=== PATIENT | female | born 1970 | race Asian ===

== ENCOUNTER 2025-09-17 00:30 | Inpatient (IN) | payer MEDICAID ==
[~2025-09-17] VITALS: Ht 157.5 cm; Wt 70.7 kg
[2025-09-17] VITALS (21 sets, daily range): BP systolic 142–182; BP diastolic 91–117; PULSE 93–133; RESP 17–26; TEMP 98–98.4; O2SAT 90–97
--- NOTE | 2025-09-17 00:38 | Physician Documentation ---
History of Present Illness ~ Stated Complaint: ASTHMATIC Time Seen by MD: 00:36 Primary Medical Doctor: Pedro CONNELLY Patient presents to the emergency room for evaluation of shortness of breath. History of asthma. Symptoms has been getting worse over the past two days and significantly worse today. He is in her albuterol without effect. She does not smoke. Medication Reconciliation Allergies: Coded Allergies: Oxycodone (Verified Allergy, Mild, CRAZY DREAMS, 11/05/13) Scheduled Allopurinol (Allopurinol), 1 TAB PO DAILY, (Reported) Atorvastatin Calcium (Atorvastatin Calcium), 1 TAB PO DAILY, (Reported) Carvedilol (Carvedilol), 1 TAB PO BID, (Reported) Diltiazem HCl (Diltiazem 24Hr Cd), 1 CAP PO HS, (Reported) Estradiol (Estradiol), 1 TAB PO DAILY, (Reported) Famotidine (Famotidine), 1 TAB PO BID, (Reported) Miscellaneous Medications Albuterol Sulfate* (Proventil Neb*), (Reported) Past Medical History Past Medical History: Hypertension, Asthma, Sleep Apnea, *RENAL/*, Diabetes Past Surgical History: other Lives with: Family Lives In: Home Review of Systems ROS All review of systems negative except as per HPI Physical Exam Physical Exam General: Patient is awake, alert, oriented x4 in mild distress Head: Normocephalic and atraumatic. Eyes: Conjunctival normal. EOMI. PERRL. ENT: Mucous membranes moist. Neck: Supple, trachea is midline. Chest: Diffuse bilateral wheezing noted. There is no accessory muscle use or retractions. Tachypneic Cardiac: RRR without murmurs, gallops, or rubs. Abd: Soft, nondistended, nontender, with normoactive bowel sounds. No guarding, rebound, or rigidity. Extremities: Normal strength. Normal range of motion. No deformities or edema. Progress Results/Orders Results/Orders Orders - HANSEL MILNER MD Svn Treatment (09/17/25 00:36) Cont Nebulizer Treatment (09/17/25 00:48) Chest,Single View (09/17/25 02:40) Page Hospitalist (09/17/25 02:38) Fill Out Med Reconciliation (09/17/25 02:38) Completed Orders - HANSEL MILNER MD Methylprednisolone Sod Succ (Solumedrol (09/17/25 00:40) Ipratropium/Albuterol Nebule (Ipratrop/A (09/17/25 00:40) Magnesium Sulf-Water 2g/50ml (Magnesium (09/17/25 00:45) Albuterol 2.5mg/3ml Nebule (Proventil 2. (09/17/25 00:50) Electrocardiogram (09/17/25 01:02) Ondansetron Inj. (Zofran 4mg/2ml Vial) (09/17/25 01:15) Hydralazine Inj. (Apresoline Inj.) (09/17/25 02:10) Amlodipine Tablet (Norvasc Tablet) (09/17/25 02:10) Cbc/Diff (09/17/25 02:38) Chest,Single View (09/17/25 02:40) Hs Troponin I W Calculations (09/17/25 02:38) PBNP (09/17/25 02:38) BMP (09/17/25 02:38) Hgb A1c (09/17/25 01:08) Osmolality (09/17/25 01:08) Vital Signs 09/17/25 09/17/25 09/17/25 09/17/25 00:36 00:48 00:58 01:19 Temp 98.0 Pulse 99 94 93 Resp 16 22 18 B/P (MAP) 238/134 Pulse Ox 89 90 95 O2 Delivery Room Air* Room Air* O2 Flow Rate 0 0 0 FiO2 21 21 09/17/25 09/17/25 09/17/25 09/17/25 01:20 01:22 01:22 02:14 Temp 98.0 Pulse 94 91 87 Resp 18 20 B/P (MAP) 208/121 (150) Pulse Ox 91 91 91 O2 Delivery Nasal Cannula* O2 Flow Rate 2 2 FiO2 N/A N/A 09/17/25 09/17/25 09/17/25 02:14 02:17 02:27 Temp 98.0 Pulse 89 93 104 Resp 18 18 B/P (MAP) 201/123 (149) Pulse Ox 95 94 O2 Flow Rate 2 FiO2 N/A Laboratory Tests Test 09/17/25 01:08 White Blood Count 10.4 Red Blood Count 3.82 L Hemoglobin 11.1 L Hematocrit 33.5 L Mean Corpuscular Volume 87.8 Mean Corpuscular Hemoglobin 29.2 Mean Corpuscular Hemoglobin Concent 33.2 Red Cell Distribution Width 14.7 H Platelet Count 297 Mean Platelet Volume 9.2 Neutrophils (%) (Auto) 77.1 H Lymphocytes (%) (Auto) 13.3 L Monocytes (%) (Auto) 5.5 Eosinophils (%) (Auto) 3.5 Basophils (%) (Auto) 0.6 Neutrophils # (Auto) 8.0 H Lymphocytes # (Auto) 1.4 Monocytes # (Auto) 0.6 Eosinophils # (Auto) 0.4 Basophils # (Auto) 0.1 CBC Comment Sodium Level 137 Potassium Level 4.7 Chloride Level 105 Carbon Dioxide Level 21.2 L Anion Gap 11 Blood Urea Nitrogen 44 H Creatinine 4.43 H Estimated GFR/1.73 m2 10 BUN/Creatinine Ratio 9.9 L Glucose Level 176 H Hemoglobin A1c 8.0 H Osmolality 316 H Calcium Level 8.7 Troponin I High Sensitivity 8 Pro-B-Type Natriuretic Peptide 2995 H Albumin 3.5 Procalcitonin 0.17 Chemistry Comments EKG/XRAY/CT/US/VASC/MRI EKG : Additional Comment EKG interpreted by myself shows time of 0041, rate 97, sinus rhythm, normal axis, no ST changes Medical Decision Making Additional information obtaine: N/A Findings Patient presents to the emergency room with significant wheezing and shortness of breath. Differentials include but are not limited to asthma exacerbation, COPD exacerbation, CHF, viral syndrome therefore emergent breathing treatments ordered. Patient is greatly improved however she continues to have diffuse wheezing and decreased exercise tolerance and that has not feel safe going home. IV Solu-Medrol administered. Heart Score: 1 Differential Dx:Considerations: Include: anxiety, asthma, bronchitis, cardiogenic shock, CHF, COPD, dysrhythmia, hypertension, accelerated, hypertension, essential, hypertension, malignant, hyperventilation, hyponatremia, myocardial infarction, panic attack, pneumonia, pneumonitis, pneumothorax, PSVT, pulmonary embolism, respiratory distress, respiratory failu re, sinusitis, upper resp. infection, other Departure Admitted to Inpatient Unit: yes, to hospitalist Impression: Primary Impression: Asthma with acute exacerbation Additional Impression: Hypoxia Condition: Guarded Referrals: NO PRIMARY CARE PROVIDER (PCP) Signature Scribe Signature: No scribe Attestation: The note accurately reflects work and decisions made by me.Hansel Milner MD 09/17/25 02:40 HANSEL MILNER MD Sep 17, 2025 00:38
[2025-09-17] MEDS: ipratropium/albuterol 3ml nebule NEB ONE (00:47)
--- NOTE | 2025-09-17 01:04 | ELECTROCARDIOGRAPH REPORT ---
[facility] Test Date: 2025-09-17 Test Time: 00:41:25 Pat Name: NANCY RAND Department: EMERGENCY ROOM Room: [facility]TH[facility] Gender: F Park Interpreter: AUGUSTIN : 1970 Requested By: LIVIA CARDENAS Order Number: [id number] Reading MD: Dr. MIGUEL A Plaza Measurements Intervals [place] Rate: 97 P: 78 [place]: 175 QRS: 87 QRSD: 89 T: 72 QT: 397 QTc: 505 Interpretive Statements Sinus rhythm Borderline prolonged QT interval Electronically Signed On 09-18-2025 16:55:[address] MIGUEL A Plaza Please click the below link to view image of tracing.
[2025-09-17] MEDS: magnesium sulf-water 2g/50mL 50 ML IV ONE (01:06)
[2025-09-17] MEDS: ondansetron/PF 4mg/2ml inj IV ONE (01:17)
[2025-09-17] MEDS: albuterol 2.5 MG/3 ML nebule CONTNEB PRN (01:19)
[2025-09-17] MEDS: hydrALAZINE 20mg/ml inj. IV ONE ×3 (02:14→06:44)
[2025-09-17] MEDS ORDERED: ALB0.5UD INH (02:45)
[2025-09-17] MEDS ORDERED: ESTR0.5T28 PO (02:45)
[2025-09-17] MEDS ORDERED: DILT-36 PO (02:45)
[2025-09-17] MEDS ORDERED: ATOR20TA66 PO (02:45)
[2025-09-17] MEDS ORDERED: CARV25TA56 PO (02:45)
[2025-09-17] MEDS ORDERED: ALLO300T8 PO (02:45)
--- NOTE | 2025-09-17 02:59 | RADIOLOGY REPORT ---
CHEST RADIOGRAPH Indication: SOB Technique: Single frontal view of the chest was obtained COMPARISON: None FINDINGS: Lines and Tubes: None Lungs: Clear Pleura: No effusion. No pneumothorax. Cardiomediastinal contours: Unremarkable Bones: Unremarkable. ACDF hardware. IMPRESSION: 1. No acute cardiopulmonary disease.
[2025-09-17 03:04] LABS: CREATININE 4.43 MG/DL (0.40-0.90); PRO BRAIN NATRIURETIC PEPTIDE 2995 PG/ML (0-125); TOTAL CARBON DIOXIDE 21.2 MMOL/L (24-32); eCRCL 11 ML/MIN; eGFR 10 ML/MIN
[2025-09-17 03:05] LABS: MEAN PLATELET VOLUME 9.2 FL (7.4-10.4); RED CELL DISTRIBUTION WIDTH 14.7 % (11.5-14.5)
[2025-09-17] MEDS ORDERED: magnesium sulf-water 4G/100mL 100 ML IV PRN (03:15)
[2025-09-17] MEDS ORDERED: magnesium sulf-water 2g/50mL 50 ML IV PRN (03:15)
[2025-09-17] MEDS ORDERED: potassium Cl 40MEQ/1/2NS 520ml 520 ML IV PRN (03:15)
[2025-09-17] MEDS ORDERED: magnesium Cl slow-release 64mg tablet PO PRN (03:15)
[2025-09-17] MEDS ORDERED: magnesium hydroxide 30ml (MOM) UD suspension PO PRN (03:15)
[2025-09-17] MEDS ORDERED: potassium Cl 20 mEq SR tablet PO PRN ×2 (03:15)
[2025-09-17 03:31] LABS: OSMOLALITY 316 MOSM/K (280-300)
[2025-09-17] MEDS: normal saline 1000ml 1,000 ML IV SCH (03:39)
[2025-09-17] MEDS: PERFLUTREN PROTEIN-A MICROSPHR (Optison) 0.22 MG/ML 3ML VIAL IV ONE (03:39)
[2025-09-17 04:09] LABS: INFLUENZA TYPE A ANTIGEN RAPID NEGATIVE (Negative); INFLUENZA TYPE B ANTIGEN RAPID NEGATIVE (Negative)
[2025-09-17 04:23] LABS: CREATININE,URINE RANDOM 32.0 MG/DL
[2025-09-17 04:44] LABS: OSMOLALITY UA 338.0 MOSM/K (50-1400)
[2025-09-17 05:01] LABS: LEUKOCYTE ESTERASE ,URINE NEGATIVE (Neg); NITRITES, URINE NEGATIVE (Neg); OCCULT BLOOD,URINE TRACE-INTACT (Neg)
[2025-09-17 05:08] LABS: UA COLLECTION TYPE NON-SPECIFIED
[2025-09-17 05:11] LABS: SQUAMOUS EPITHELIAL CELL,UR FEW /LPF (FEW)
--- NOTE | 2025-09-17 05:16 | HISTORY AND PHYSICAL-Residence ---
History & Physical Providers to CC Resident Creating Document: BELÉN PLUMMER, RES ~ History of Present Illness Primary Medical Doctor: Pedro Reason for Admit\Complaint: Asthma exacerbation History of Present Illness A 54-year-old woman with a remote diagnosis of asthma (well controlled, uses ROME only once/twice per year) presented to the ED as she woke this morning with acute onset chest tightness and progressive dyspnea. Symptoms began on awakening and worsened with exertion; she used her albuterol repeatedly throughout the day without any relief. Patient's symptoms were associated with productive cough with white sputum; however she denied fever, chills or rhinorrhea. In the ED she required L of O2 to maintain SpO2 > 90%. She received one dose of IV methylprednisolone 125 mg and DuoNeb with partial clinical response. Chest X-ray reported as normal. Rapid influenza and COVID negative. 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 Lives at home with the son and niece Ambulates independently Allergies: Coded Allergies: Oxycodone (Verified Allergy, Mild, CRAZY DREAMS, 11/05/13) Home Medications Home Medications Active Reported Atorvastatin Calcium 20 Mg Tablet 1 Tab PO DAILY Carvedilol 25 Mg Tablet 1 Tab PO BID Diltiazem 24Hr Cd (Diltiazem HCl) 180 Mg Cap.er.24h 1 Cap PO HS Estradiol 0.5 Mg Tablet 1 Tab PO DAILY Proventil Neb* (Albuterol) 2.5 Mg/0.5 Ml Vial.neb Allopurinol 300 Mg Tablet 1 Tab PO DAILY Past Medical History Past Medical History Hyperlipidemia Hypertension Gout Stage IV CKD Asthma Past Surgical History Surgical History Comment Resection of brain tumor-meningioma C4-C7 ACDF cervical surgery Left shoulder surgery 20 years ago Endometrial ablation Mandibular surgery and tonsillectomy for obstructive sleep apnea Past Social History Social History Comment Denied smoking and alcohol use Admits to smoking marijuana daily Lives with: Family Lives In: Home ROS ROS Reviewed in full. All negative except for pertinent positive HPI. Exam Vitals: Vital Signs Date Time Temp Pulse Resp B/P (MAP) Pulse Ox O2 Delivery O2 Flow Rate FiO2 09/17/25 05:01 108 09/17/25 04:51 98.0 23 187/97 (127) 90 0 N/A 09/17/25 01:22 Nasal Cannula* General: Awake , alert, and oriented x4, in acute distress HEENT: Atraumatic, normocephalic, EOMI, anicteric sclera ; pink conjunctiva Neck: Trachea midline. Supple, full range of motion, no JVD Cardiac: Regular rhythm, regular rate with no murmurs all over the precordium. Respiratory: Diminished bilateral breath sounds with severe wheezing Gastrointestinal: Abdomen symmetric, non-distended, soft, non-tender, normal bowel sounds x4 quadrant, normoactive, no hepatosplenomegaly Musculoskeletal: No pedal edema, no cyanosis Neurological: Mental status exam: alert and consciousness, orientation, memory, speech - Cranial nerve test: Cranial nerves 2-12 intact - Motor system: Nutrition, Tone 3+, Power 5/5, no involuntary movements - Sensory system: Intact - Reflex testing: Biceps, triceps and knee reflexes 2+ - Cerebellar: Normal Skin: Warm and dry Diagnostic Data Last Recorded Lab Results: 09/17/2510709/17/25107 Advance Care Planning Advanced Care plannin - 30 Minutes Additional Plan 1. Acute Hypoxemic Respiratory Failure 2. Acute on chronic Asthma Exacerbation New oxygen requirement (2 L NC) to maintain SpO2 >90% Likely secondary to asthma exacerbation; no infiltrates on CXR Afebrile, normal WBC, low procal (0.17) infection less likely BNP elevated (2995) but may be chronically elevated due to CKD; no radiographic pulmonary edema Acute onset wheezing, chest tightness, dyspnea unresponsive to frequent albuterol at home This is first severe episode in years. Trigger unclear (no viral symptoms, COVID/flu negative) Responded partially to Duonebs and IV methylprednisolone 125 mg in the ED Plan Continue oxygen to maintain SpO2 9094%; wean as tolerated Consider ABG only if worsening work of breathing Repeat CXR if respiratory status worsens Duoneb (albuterol / ipratropium) q4h scheduled & q2h PRN Systemic steroids: Methylprednisolone 62.5 mg IV q.8h Please DC patient on Symbicort scheduled b.i.d. Pulmonary function testing outpatient 3. Stage 4 CKD (Cr 4.43, eGFR 10) Probably secondary to hypertension; hypertensive nephropathy Known advanced CKD followed by outpatient nephrology, Dr Hebert Davidson BNP may be falsely elevated due to renal disease Electrolytes stable; no evidence of volume overload clinically Currently not on hemodialysis Plan Renal-dose all medications Avoid nephrotoxins Monitor BMP daily Urine lytes ordered Renal ultrasound ordered Continue outpatient nephrology follow-up 4. Hypertensive urgency On home diltiazem 180 mg and carvedilol 25 mg BID BP high on admission, 180/100 Mild tachypnea but hemodynamically stable. Plan Continue home antihypertensives Patient received hydralazine 20 mg IV once in the ED follow up with 10 mg Patient is already on a different classes of antihypertensives, if blood pressures are high during the hospital stay, we will benefit from addition of amlodipine 10 mg (safety renally) 5. Elevated BNP (2995) Questionable heart failure Likely chronic elevation due to CKD (GFR 10) No pulmonary congestion on CXR; no orthopnea, PND or peripheral edema Plan Echocardiogram ordered, follow up Monitor volume status daily, currently in euvolemia 6. Type 2 diabetes mellitus (A1c 8%, glucose 176) Poor glycemic control Steroids will worsen hyperglycemia Currently not on any antidiabetic medications Plan Ordered Lantus 12 units with low-dose sliding scale insulin Monitor glucose AC & HS Adjust regimen once off steroids 7. Cough With White Sputum Likely airway inflammation from asthma. No fever, negative viral panel, low procal, normal WBC - low suspicion for bacterial infection Plan No antibiotics at this time Consider antibiotics if sputum becomes purulent, febrile or CXR changes 8. Gout on Allopurinol dvanced CKD with eGFR around 10 Currently on allopurinol 300 mg daily, which is excessive for this level of renal function Plan Renally adjusted allopurinol dosage Reduced to 100 mg once daily If GFR <10 ,consider 50 mg daily or 100 mg every other day Ordered uric acid levels Continue outpatient nephrology follow-up 9. Hyperlipidemia Follow up with the lipid panel, continue home medication atorvastatin 20 mg daily Code Status: I spent a total of 17 minutes on reviewing various resuscitative measures with the patient at the time of admission. The patient has decided on a full code status. DVT Prophylaxis: Heparin SQ Nutrition: Renal diet PT: Ordered Prognosis: Guarded Belén Plummer MD Internal Medicine Resident, PGY-2 Attending Physician Attestation Evaluation via HIPAA compliant A/V device. I discussed the case with the resident and I agree with the resident's documentation. 54-year-old woman with a history of mild intermittent intrinsic asthma, essential hypertension, CKD 4 and gout now admitted with an asthma exacerbation. The treatment plan includes: Bronchodilator therapy with albuterol/ipratropium and IV methylprednisolone for treatment of the patient's obstructive lung disease. There is no evidence of a lower tract infection. Antimicrobial therapy will be withheld at this time. Time spent 50 minutes. Date of Service: Sep 17, 2025 Billing Provider: DIONISIO VALDES MD, GAURAV, RES Sep 17, 2025 05:16 DIONISIO VALDES MD Sep 17, 2025 07:04
[2025-09-17] MEDS ORDERED: dextrose 50%-water 50ml dispensing syringe IV PRN ×2 (05:25)
[2025-09-17] MEDS ORDERED: glucagon, human recombinant 1mg kit SUBCUT PRN (05:25)
[2025-09-17] MEDS ORDERED: DEXTROSE 15 GM of carb/4 tabs (each vial/BOTTLE has 4 tablets) PO PRN ×2 (05:25)
[2025-09-17] MEDS ORDERED: methylPREDNISolone sod succ/PF 40mg inj. IV SCH (05:25)
[2025-09-17] MEDS ORDERED: ipratropium/albuterol 3ml nebule NEB PRN (05:25)
[2025-09-17 06:22] LABS: UA EOSINOPHILS RARE EOS /HPF
[2025-09-17] MEDS: ipratropium/albuterol 3ml nebule NEB SCH (06:48)
[2025-09-17] MEDS: ondansetron/PF 4mg/2ml inj IV PRN (07:14)
[2025-09-17] MEDS: docusate sod 100mg capsule PO SCH (08:00)
[2025-09-17] MEDS: INSULIN LISPRO 100 UNIT/ML INSULN.PEN MULTI-DOSE SQ SCH ×2 (08:22→20:38)
[2025-09-17] MEDS: K and/or MAG REPLACEMENT MC SCH (09:35)
[2025-09-17] MEDS: heparin, porcine 5000 units/ml vial SQ SCH (09:56)
--- NOTE | 2025-09-17 10:57 | RADIOLOGY REPORT ---
INDICATION: CKD vs REAGAN TECHNIQUE: Multiple real-time sonographic images of the kidneys and bladder were obtained. COMPARISON: None FINDINGS: The right kidney measures 12 cm in length, which is normal in size. There is increased echogenicity of the right kidney. No hydronephrosis. The left kidney measures 10 cm in length, which is normal in size. There is increased echogenicity of the left kidney. No hydronephrosis. No large intraluminal masses are seen in the bladder. Prior to voiding the bladder volume measures volume 464 cc. IMPRESSION: Echogenic bilateral kidneys suggestive of chronic medical renal disease. No hydronephrosis.
[2025-09-17] MEDS: Nepro carb steady vanilla 8oz. PO SCH (13:00)
[2025-09-17] MEDS: CefTRIAXone/D5W-Rocephin 1gm 50 ML IV SCH (16:07)
[2025-09-17] MEDS: mag hydrox/Alum hydrox/simeth 30ml oral suspension PO PRN (16:17)
[2025-09-17] MEDS ORDERED: FAMO20TA8 PO (16:19)
[2025-09-17] MEDS: azithromycin/NS 500mg/250ml 250 ML IV SCH (17:09)
[2025-09-17 17:32] LABS: URINE AMPHETAMINE SCREEN NEGATIVE (Neg); URINE BARBITUATE SCREEN NEGATIVE (Neg); URINE BENZODIAZEPINES SCREEN NEGATIVE (Neg); URINE CANNABINOID SCREEN POSITIVE (Neg); URINE COCAINE SCREEN NEGATIVE (Neg); URINE METHADONE SCREEN NEGATIVE (Neg); URINE OPIATE SCREEN NEGATIVE (Neg); URINE PHENCYCLIDINE SCREEN NEGATIVE (Neg)
--- NOTE | 2025-09-17 17:33 | CARDIOLOGY REPORT ---
APPROVED REPORT EXAM: Comprehensive 2D, Doppler, and color-flow Echocardiogram. Patient Location: [facility] Heart Rate: 105 bpm Rhythm: SINUS TACHYCARDIA Indications SHORT OF BREATH ASTHMA CHRONIC RENAL FAILURE HYPERTENSION SLEEP APNEA DIABETES Tape Duplicator: NONE Previous echo: NONE 2D Dimensions RVDd 2.5 cm LA Diam 3.7 cm LVOT Diameter 2.06 (1.8-2.4cm) CO 5.2 L/min M-Mode Dimensions Left Atrium(MM) 3.30 (2.5-4.0cm) IVSd 1.13 (0.7-1.1cm) LVDd 4.05 (4.0-5.6cm) Aortic Root 3.21 (2.2-3.7cm) PWd 1.17 (0.7-1.1cm) Aortic Cusp Exc 1.75 (1.5-2.0cm) IVSs 1.44 cm LVDs 2.47 (2.0-3.8cm) FS (%) 39 % PWs 1.75 cm ESV(Teich) 21.7 ml LVEF(%) 70 (>50%) Aortic Valve AoV Peak Aidan. 137.2 cm/s AoV VTI 23.1 cm AO Peak GR. 7.5 mmHg AO Mean GR. 4 mmHg LVOT VTI 21.75 cm LVOT Peak Aidan. 112.8 cm/s ANTONIA(VTI)/BSA 2.77 cm2/m2 ANTONIA (VTI) 2.77 cm2 AV DI 0.94 % Mitral Valve MV Peak Gr. 10 mmHg MV PHT 28 ms MVA (PHT) 7.86 cm2 MV VMax 159.2 cm/s Tricuspid Valve TR P. Velocity 111 cm/s RAP ESTIMATE 10 mmHg TR Peak Gr. 5 mmHg RVSP 15 mmHg Pulmonary Vein S1 Velocity 82.2 cm/s D2 Velocity 87.6 cm/s PVa Velocity 42.6 cm/s PVa Duration 124 msec LEFT VENTRICLE Normal LV size with concentric hypertrophy. Overall systolic function is normal. overall LVEF is 65%. RIGHT VENTRICLE RV is normal size and function. Thickened RV free wall. ATRIA The left atrium size is normal. AORTIC VALVE Trileaflet AV appears minimal sclerotic without stenosis or insufficiency. MITRAL VALVE Mild MV annular calcification without stenosis. Trace regurgitation. TRICUSPID VALVE TV appears structurally normal with trivial regurgitation. PULMONIC VALVE Normal PV without stenosis, physiologic insufficiency. GREAT VESSELS Aortic root is normal in size. Ascending aorta is normal in size. The IVC is normal in size and collapses >50% with inspiration. PERICARDIUM Normal pericardium. No effusion. Other Information Study Quality: Adequate Conclusion overall LVEF is 65%. Normal LV size with concentric hypertrophy. Overall systolic function is normal. RV is normal size and function. Thickened RV free wall. Trileaflet AV appears minimal sclerotic without stenosis or insufficiency. Mild MV annular calcification without stenosis. Trace regurgitation. TV appears structurally normal with trivial regurgitation. Ascending aorta is normal in size. Normal pericardium. No effusion.
--- NOTE | 2025-09-17 19:13 | PROGRESS NOTE- Residence ---
Progress Note - Resident Providers to CC Resident Creating Document: LUIZ MERCEDES RES ~ Antibiotic Timeout Antibiotic Ordered?: Yes Subjective Patient was seen and examined bedside. She states that her shortness of breath has mildly improved. She is saturating well on 6 L O2. She endorses having headache due to high blood pressure. She denies any other medical complaints. Objective Vital Signs Date Time Temp Pulse Resp B/P (MAP) Pulse Ox O2 Delivery O2 Flow Rate FiO2 09/17/25 18:44 98.1 128 22 182/117 (138) 94 4.0 09/17/25 16:01 Nasal Cannula 09/17/25 16:00 36 Result Diagram: 09/17/25 0108 09/17/25 0707 Awake , alert, and oriented x4, in mild distress HEENT: Atraumatic, normocephalic, EOMI, anicteric sclera ; pink conjunctiva Neck: Trachea midline. Supple, full range of motion, no JVD Cardiac: Regular rhythm, regular rate with no murmurs all over the precordium. Respiratory: Diminished breath sounds bilaterally with severe wheezing, no tachypnea, rub or rales, Chest wall is symmetric and without deformity. Gastrointestinal: Abdomen symmetric, non-distended, soft, non-tender, normal bowel sounds x4 quadrant, normoactive, no hepatosplenomegaly Musculoskeletal: No pedal edema, no cyanosis Neurological: Speech is clear, alert, and oriented x 4. No motor or sensory deficit, deep tendon reflexes normal, cerebellar intact. Cranial nerves II-XII intact. Skin: Warm and dry Coagulation Studies Laboratory Tests Test 09/17/25 14:55 D-Dimer 0.74 MG/L FEU (0-0.50) H D-Dimer Comment Assessment Assessment 54 year old female with history of hypertension, hyperlipidemia, gout, stage 4 CKD, asthma admitted for management of COPD exacerbation. Plan Plan Acute Hypoxemic Respiratory Failure 2/2 COPD exacerbation Dyspnea and wheezing unresponsive to Albuterol inhaler at home She does not use oxygen at home She is saturating well on 6 L O2 NC CXR shows no acute cardiopulmonary abnormality Inflammatory markers are normal SIRS criteria not met Trigger unclear (no viral symptoms, COVID/flu negative) Plan: Started IV ceftriaxone 1 gm and IV azithromycin 500 mg - day 1 Continue IV methylprednisolone 62.5 mg Q8h Duoneb (albuterol / ipratropium) q4h scheduled & q2h PRN Incentive spirometry Plan to discharge patient on Symbicort scheduled b.i.d., Pulmonary function testing outpatient Possible PE Wells score is 1.5 D-dimer is mildly elevated- 0.74 Echo shows LVEF of 65%, RVSP 15 mm Hg, concentric hypertrophy of LV, thickened RV free wall, trace mitral regurgitation and trivial tricuspid regurgitation. Patient is tachycardic CTA cannot be done as patient has CKD and creatinine is elevated Follow up V/Q scan Stage 4 CKD (Cr 4.43, eGFR 10) Probably secondary to hypertension; hypertensive nephropathy Advanced CKD followed by outpatient nephrology, Dr Hebert Davidson Creatinine is elevated - 4.43, baseline unknown BUN is 44 Fena- 10% BNP may be falsely elevated due to renal disease Electrolytes stable; no evidence of volume overload clinically Currently not on hemodialysis Monitor BMP daily Renal ultrasound shows echogenic bilateral kidneys suggestive of chronic medical renal disease and no hydronephrosis Continue outpatient nephrology follow-up Hypertensive urgency Blood pressure is 179/107 She uses diltiazem 180 mg and carvedilol 25 mg BID at home Continued home antihypertensives Started amlodipine 5 mg IV hydralazine prn if systolic BP > 180 mm Hg Type 2 diabetes mellitus HbA1C is 8% Poor glycemic control Steroids will worsen hyperglycemia Currently not on any antidiabetic medications Continue Lantus 12 units with low-dose sliding scale insulin Monitor glucose AC & HS Consider scheduled lispro if glucose not controlled by tomorrow Adjust regimen once off steroids Gout Patient uses Allopurinol at home She uses allopurinol 300 mg daily at home which is not renally dosed Continue allopurinol 100 mg dosage, which is renally dosed If GFR <10 ,consider 50 mg daily or 100 mg every other day Uric acid is elevated-7.4 Continue outpatient nephrology follow-up Hyperlipidemia Follow up lipid panel Continue home medication atorvastatin 20 mg daily DVT Prophylaxis: Heparin SQ Nutrition: Renal diet PT: Ordered Prognosis: Guarded Disposition: Continue IV antibiotics, monitor creatinine and blood pressure, Follow up V/Q scan, PT eval and DC plan Resident attestation: The above note has been reviewed and supervised by a senior resident PGY2/PGY3 Patient was seen, examined and discussed with the attending physician, Dr. Torrie Mercedes MD Internal Medicine Resident, PGY 1 Date of Service: Sep 17, 2025 Billing Provider: BAMBI SALAZAR MD, PREETHI, RES Sep 17, 2025 19:13
[2025-09-17] MEDS: diltiazem CD 180mg cap (once-daily) PO SCH (20:00)
[2025-09-17] MEDS: insulin glargine (Lantus) pen - multi-dose SQ SCH (20:39)
[2025-09-17] MEDS ORDERED: hydrALAZINE 20mg/ml inj. IV PRN (21:35)
[2025-09-17] MEDS: LEVALBUTEROL HCL 1.25 MG/3 ML VIAL.NEB INH SCH (23:29)
[2025-09-18] VITALS (17 sets, daily range): BP systolic 138–161; BP diastolic 80–92; PULSE 84–105; RESP 14–20; TEMP 97.8–99.3; O2SAT 92–96
[2025-09-18] MEDS: methylPREDNISolone sod succ/PF 40mg inj. IV SCH (01:01)
[2025-09-18 06:38] LABS: MEAN PLATELET VOLUME 8.9 FL (7.4-10.4); RED CELL DISTRIBUTION WIDTH 14.6 % (11.5-14.5)
[2025-09-18 06:44] LABS: CHOL/HDL RATIO 3.8 (0.00-4.99); CREATININE 4.47 MG/DL (0.40-0.90); LDL CHOLESTEROL 147 MG/DL (50-100); TOTAL CARBON DIOXIDE 18.3 MMOL/L (24-32); eCRCL 11 ML/MIN; eGFR 10 ML/MIN
--- NOTE | 2025-09-18 09:33 | RADIOLOGY REPORT ---
CLINICAL INFORMATION: Shortness of breath. Elevated D-dimer. TECHNIQUE: 43.1 mCi of aerosolized Tc99m DTPA was used for the ventilation portion of the exam. Posterior ventilation imaging was obtained. 5.5 mCi of technetium 99m MAA was used for the perfusion portion of the exam. Imaging was obtained in multiple planes of projection. COMPARISON: Chest radiograph dated 09/17/2025. FINDINGS: Perfusion imaging shows no mismatched segmental or subsegmental segmental defects. Ventilation imaging shows no defects. There is normal washout. IMPRESSION: Normal exam. No evidence of pulmonary embolism.
[2025-09-18] MEDS: INSULIN LISPRO 100 UNIT/ML INSULN.PEN MULTI-DOSE SQ SCH ×2 (12:16→17:51)
--- NOTE | 2025-09-18 12:24 | PROGRESS NOTE- Residence ---
Progress Note - Resident Providers to CC Resident Creating Document: LUIZ MERCEDES RES ~ Antibiotic Timeout Antibiotic Ordered?: Yes Subjective Patient was seen and examined bedside. Her shortness of breath and wheezing has improved. She is saturating well on 4 L oxygen. She denies headache, chest pain, palpitations or any other acute complaints. Objective Vital Signs Date Time Temp Pulse Resp B/P (MAP) Pulse Ox O2 Delivery O2 Flow Rate FiO2 09/18/25 11:17 84 20 Nasal Cannula 4.0 09/18/25 11:09 96 36 09/18/25 10:00 97.8 138/85 (102) Result Diagram: 09/18/25 0553 09/18/25 0553 Awake , alert, and oriented x4, resting comfortably in bed, in no acute distress HEENT: Atraumatic, normocephalic, EOMI, anicteric sclera ; pink conjunctiva Neck: Trachea midline. Supple, full range of motion, no JVD Cardiac: Regular rhythm, regular rate with no murmurs all over the precordium. Respiratory: Diminished breath sounds bilaterally with wheezing, no tachypnea, rub or rales, Chest wall is symmetric and without deformity. Gastrointestinal: Abdomen symmetric, non-distended, soft, non-tender, normal bowel sounds x4 quadrant, normoactive, no hepatosplenomegaly Musculoskeletal: No pedal edema, no cyanosis Neurological: Speech is clear, alert, and oriented x 4. No motor or sensory deficit, deep tendon reflexes normal, cerebellar intact. Cranial nerves II-XII intact. Skin: Warm and dry Coagulation Studies Laboratory Tests Test 09/17/25 14:55 D-Dimer 0.74 MG/L FEU (0-0.50) H D-Dimer Comment Assessment Assessment 54 year old female with history of hypertension, hyperlipidemia, gout, stage 4 CKD, asthma admitted for management of COPD exacerbation. Plan Plan Acute Hypoxemic Respiratory Failure 2/2 COPD exacerbation Shortness of breath and wheezing have improved She does not use oxygen at home She is saturating well on 4 L O2 NC CXR (09/17/25) showed no acute cardiopulmonary abnormality WBC has elevated, most likely due to steroids SIRS criteria not met Trigger unclear (no viral symptoms, COVID/flu negative) Plan: Continue IV ceftriaxone 1 gm and IV azithromycin 500 mg - day 2 Continue IV methylprednisolone 62.5 mg Q8h Duoneb (albuterol / ipratropium) q4h scheduled & q2h PRN Incentive spirometry Plan to discharge patient on Symbicort scheduled b.i.d. Pulmonary function testing outpatient Suspicion of PE-ruled out Wells score is 1.5 D-dimer is mildly elevated- 0.74 Echo shows LVEF of 65%, RVSP 15 mm Hg, concentric hypertrophy of LV, thickened RV free wall, trace mitral regurgitation and trivial tricuspid regurgitation. CTA could not be done as patient has CKD and creatinine is elevated V/Q scan shows no evidence of pulmonary embolism Stage 4 CKD (Cr 4.43, eGFR 10) Probably secondary to hypertensionor diabetes; hypertensive nephropathy/diabetic nephropathy Advanced CKD followed by outpatient nephrology, Dr Hebert Davidson Creatinine has up trended from 4.43 to 4.47, baseline unknown BUN is 52, eGFR is 10 Fena- 10% NS at 100 mL/hour BNP may be falsely elevated due to renal disease Bicarbonate is 18.3, consider drip if bicarbonate < 15 No evidence of volume overload clinically Currently not on hemodialysis Monitor BMP and electrolytes Renal ultrasound (09/17/25) showed echogenic bilateral kidneys suggestive of chronic medical renal disease and no hydronephrosis Dr. Muñoz was consulted, awaiting recommendations Hypertensive urgency-resolved Blood pressure is 138/85 She uses diltiazem 180 mg and carvedilol 25 mg BID at home, as per patient she does not have a history of AFib and uses diltiazem and carvedilol for hypertension Continued home antihypertensives Continue amlodipine 5 mg IV hydralazine prn if systolic BP > 180 mm Hg Questionable history of AFib Steven Vasc score 3 Patient takes diltiazem 180 mg at home As per patient, she does not have a history of AFib and uses diltiazem for hypertension Tele (09/17/25) showed sinus tachycardia Her pulse rate has stabilized, currently in the 80s Continued home medication diltiazem 180 mg Patient is not on blood thinners Type 2 diabetes mellitus HbA1C is 8% Poor glycemic control Currently not on any antidiabetic medications Increased Lantus from 12 units to 15 units Started lispro 2 units ACHS along with high-dose hyperglycemia/hypoglycemia protocol Monitor glucose Gout Patient uses Allopurinol at home She uses allopurinol 300 mg daily at home which is not renally dosed Continue allopurinol 100 mg dosage, which is renally dosed If GFR <10 ,consider 50 mg daily or 100 mg every other day Uric acid is elevated-7.4 Outpatient follow up Hyperlipidemia LDL is 147 She uses atorvastatin 20 mg at home Increased atorvastatin to 40 mg Outpatient follow up DVT Prophylaxis: Heparin SQ Nutrition: Renal diet PT: Ordered Prognosis: Guarded Disposition: Continue IV antibiotics, steroids and DuoNebs, monitor creatinine and blood pressure, awaiting Dr. Muñoz recommendations, PT eval and DC plan Resident attestation: The above note has been reviewed and supervised by a senior resident PGY2/PGY3 Patient was seen, examined and discussed with the attending physician, Dr. Torrie Mercedes MD Internal Medicine Resident, PGY 1 Date of Service: Sep 18, 2025 Billing Provider: BAMBI SALAZAR MD, PREETHI, RES Sep 18, 2025 12:24
[2025-09-18] MEDS: INSULIN LISPRO 100 UNIT/ML INSULN.PEN MULTI-DOSE SQ ONE (18:00)
[2025-09-18] MEDS: insulin glargine (Lantus) pen - multi-dose SQ SCH (21:31)
--- NOTE | 2025-09-18 22:07 | CONSULTATION REPORT ---
Consult Providers to CC ~ History of Present Illness Reason for Admit\Complaint: Dyspnea History of Present Illness This patient with advanced CKD, hypertension, diabetes, and asthma presented with acute hypoxic respiratory failure, likely multifactorial (asthma exacerbation, possible CHF). She is at high risk for further renal injury and requires careful management of volume status, blood pressure, and medication dosing. Allergies: Coded Allergies: Oxycodone (Verified Allergy, Mild, CRAZY DREAMS, 11/05/13) Home Medications Home Medications Active Reported Famotidine 20 Mg Tablet 1 Tab PO BID Atorvastatin Calcium 20 Mg Tablet 1 Tab PO DAILY Carvedilol 25 Mg Tablet 1 Tab PO BID Diltiazem 24Hr Cd (Diltiazem HCl) 180 Mg Cap.er.24h 1 Cap PO HS Estradiol 0.5 Mg Tablet 1 Tab PO DAILY Proventil Neb* (Albuterol) 2.5 Mg/0.5 Ml Vial.neb 2 Puffs INH PRN PRN Allopurinol 300 Mg Tablet 1 Tab PO DAILY Past Medical History Past Medical History Reviewed Past Surgical History Surgical History Comment Reviewed Past Social History Social History Comment Reviewed ROS ROS All other systems negative by patient report Exam Vitals: Vital Signs Date Time Temp Pulse Resp B/P (MAP) Pulse Ox O2 Delivery O2 Flow Rate FiO2 09/18/25 21:28 103 09/18/25 20:00 Nasal Cannula 4.0 36 09/18/25 19:46 18 09/18/25 19:40 95 09/18/25 18:00 98.1 149/83 (105) Alert, appears comfortable RRR w/o murmur CTAB +BS, NT No edema Diagnostic Data Last Recorded Lab Results: 09/18/25 0553 09/18/25 0553 Diagnostic Data: I & O 09/18/25 07:00 Intake Total 1040 ml Balance 1040 ml Intake Oral 1040 ml Laboratory Tests Test 09/17/25 14:55 D-Dimer 0.74 MG/L FEU (0-0.50) H D-Dimer Comment Problems: (1) Acute kidney injury superimposed on CKD Assessment & Plan: Acute on Chronic Kidney Disease (Stage IV CKD) Monitor renal function daily (BUN/Cr, electrolytes, urine output). Baseline creatinine is elevated at 4.43, BUN 44, with known CKD IV; risk for further REAGAN given acute illness, hypoxia, and possible volume shifts. Review and adjust nephrotoxic medications. Avoid NSAIDs, minimize contrast exposure, and review allopurinol dosing (currently 100 mg in hospital, previously 300 mg at home). Optimize volume status. Assess for volume overload vs. depletion; physical exam and daily weights; consider diuretics if evidence of fluid overload, but monitor for hypovolemia. Monitor for metabolic derangements. CO2 is low (21.2), monitor for metabolic acidosis; correct as needed. Renal dosing of all medications. Ensure all antibiotics and other medications are dosed appropriately for eGFR. (2) Acute and chronic respiratory failure with hypoxia Assessment & Plan: Acute Hypoxic Respiratory Failure (Asthma Exacerbation vs. Cardiac Etiology) Continue inhaled bronchodilators and systemic steroids. Patient responded to IV methylprednisolone and DuoNeb; continue scheduled bronchodilators and taper steroids as clinically indicated. Monitor for infection. Productive cough with white sputum, but afebrile and negative for COVID/influenza; empiric azithromycin and ceftriaxone are reasonable pending further workup. Monitor oxygenation and wean as tolerated. Maintain SpO2 >90%; currently on room air with improvement. Evaluate for cardiac contribution (CHF). Elevated BNP (2995) and hypertension suggest possible heart failure exacerbation; monitor for signs of volume overload. (3) Hypertensive emergency Assessment & Plan: Hypertensive Emergency/Severe Hypertension Continue antihypertensive regimen with close monitoring. Admission BP 180/100, improved to 187/97; on amlodipine, carvedilol, diltiazem, hydralazine. Avoid rapid overcorrection. Target gradual BP reduction to avoid hypoperfusion, especially with CKD. Monitor for end-organ damage. Assess for neurologic changes, worsening renal function, or cardiac ischemia. (4) Heart failure Assessment & Plan: Heart Failure with Preserved Ejection Fraction (HFpEF) Suspected Monitor for volume overload. BNP markedly elevated; assess for JVD, edema, rales. Optimize fluid balance. Diurese if evidence of overload, but balance with CKD status. Continue guideline-directed medical therapy. Carvedilol, amlodipine, diltiazem; review for possible adjustments. (5) Diabetes mellitus Assessment & Plan: Type 2 Diabetes Mellitus Monitor blood glucose closely. Admission glucose 176; on insulin glargine and lispro in hospital. Adjust insulin as needed for stress hyperglycemia. No recent A1c; monitor for hypoglycemia, especially with reduced oral intake or renal dysfunction. (6) Gout Assessment & Plan: Gout Continue allopurinol at renally adjusted dose. Currently on 100 mg in hospital; monitor for acute gout flares, especially with diuretic use or acute illness. JOSE WALL III DO Sep 18, 2025 22:07
[2025-09-19] VITALS (21 sets, daily range): BP systolic 134–175; BP diastolic 73–101; PULSE 88–113; RESP 16–22; TEMP 97.5–98.6; O2SAT 93–98
[2025-09-19 06:19] LABS: CREATININE 4.51 MG/DL (0.40-0.90); TOTAL CARBON DIOXIDE 18.3 MMOL/L (24-32); eCRCL 11 ML/MIN; eGFR 10 ML/MIN
[2025-09-19 06:28] LABS: MEAN PLATELET VOLUME 8.6 FL (7.4-10.4); RED CELL DISTRIBUTION WIDTH 14.9 % (11.5-14.5)
[2025-09-19] MEDS: methylPREDNISolone sod succ/PF 40mg inj. IV SCH (08:16)
[2025-09-19] MEDS: INSULIN LISPRO 100 UNIT/ML INSULN.PEN MULTI-DOSE SQ SCH ×2 (09:00→18:00)
--- NOTE | 2025-09-19 09:24 | ELECTROCARDIOGRAPH REPORT ---
[facility] Test Date: 2025-09-19 Test Time: 09:21:44 Pat Name: NANCY RAND Department: [facility] Patient ID: [facility]-[id number] Room: [place] [id number] B Gender: F Building Carpenter: Marilynn Box : [id number] Requested By: WYATT PETERSON Order Number: [id number] Reading MD: Dr. MIGUEL A Plaza Measurements Intervals [place] Rate: 100 P: 73 RI: 150 QRS: 70 QRSD: 91 T: 41 QT: 363 QTc: 469 Interpretive Statements Sinus tachycardia Anteroseptal infarct, old Electronically Signed On 09-19-2025 16:50:[address] MIGUEL A Plaza Please click the below link to view image of tracing.
[2025-09-19] MEDS ORDERED: furosemide 10 MG/1 ML 10ml inj IV ONE (10:25)
[2025-09-19 11:35] LABS: MEAN PLATELET VOLUME 8.7 FL (7.4-10.4); RED CELL DISTRIBUTION WIDTH 14.7 % (11.5-14.5)
[2025-09-19] MEDS ORDERED: ipratropium/albuterol 3ml nebule NEB PRN (11:55)
--- NOTE | 2025-09-19 11:59 | RADIOLOGY REPORT ---
CHEST RADIOGRAPH Indication: sob Technique: Single frontal view of the chest was obtained COMPARISON: DI CHEST,SINGLE VIEW on DOS: 09/17/25 FINDINGS: Lines and Tubes: None Lungs: Clear Pleura: No effusion. No pneumothorax. Cardiomediastinal contours: Unremarkable Bones: Unremarkable IMPRESSION: No acute disease.
[2025-09-19] MEDS: ipratropium/albuterol 3ml nebule NEB SCH (15:00)
[2025-09-19] MEDS: LIDOcaine 1% (10mg/ml) 2ml vial SQ ONE (15:30)
--- NOTE | 2025-09-19 16:21 | RADIOLOGY REPORT ---
EXAM: DI CHEST,SINGLE VIEW HISTORY: suzie catheter placements COMPARISON: DI CHEST,SINGLE VIEW on DOS: 09/19/25, DI CHEST,SINGLE VIEW on DOS: 09/17/25 TECHNIQUE: Portable upright AP view of the chest was performed. FINDINGS: There is a right IJ central line with its tip in the right atrium. No pneumothorax, consolidative infiltrates, or pulmonary edema. The heart is not enlarged. There are Postoperative changes of ACDF. There are postoperative changes of left shoulder surgery with multiple bone anchors present. There is mo derate thoracic degenerative disc disease. IMPRESSION: 1. New right IJ central line with its tip in the right atrium, without evidence of pneumothorax. 2. Postoperative changes of ACDF and left shoulder surgery.
--- NOTE | 2025-09-19 17:34 | PROCEDURE NOTE- Residance ---
Procedure Note Providers to CC ~ Description Consent was obtained and a time-out was completed verifying correct patient, procedure, site, and positioning. The patient was placed in appropriate dependen t position for central line placement. The patients right neck was prepped and draped in sterile fashion. 1% Lidocaine was used to anesthetize the surrounding skin area. Ultrasound was used to identify the vein and observe the needle entering the vein. A double lumen catheter was introduced into the internal jugular vein using Seldinger technique. The catheter was threaded smoothly over the guide wire and guide wire was removed. Appropriate blood return was obtained and each lumen of the catheter was evacuated of air and flushed with sterile saline. The catheter was then sutured in place to the skin and a sterile dressing applied. The patient tolerated the procedure well and there were no complications. Blood loss was minimal. Date of Service: Sep 19, 2025 Billing Provider: VERO RICARDO MD,YAHAIRA ARGUETA, RES Sep 19, 2025 17:34
--- NOTE | 2025-09-19 18:26 | PROGRESS NOTE- Residence ---
Progress Note - Resident Providers to CC Resident Creating Document: WYATT ABRAMS CC: BAMBI SALAZAR MD ~ Antibiotic Timeout Antibiotic Ordered?: Yes Subjective Patient was seen and examined bedside. She reported significant the worsened shortness of breaths this morning, with associated chest pain which started after she got up to use the commode. She denies fevers, chills or any other subjective symptoms Objective Vital Signs Date Time Temp Pulse Resp B/P (MAP) Pulse Ox O2 Delivery O2 Flow Rate FiO2 09/19/25 17:45 98.5 99 22 171/75 (107) 95 Nasal Cannula 4.0 09/19/25 16:02 36 Result Diagram: 09/19/25 1110 09/19/25 0544 General: awake, alert oriented to place, time, and person HEENT: No pallor present, no icterus, moist mucous membranes Neck: No masses and tenderness Resp: Labored. Crackles and wheezes auscultated throughout Chest: Normal expansion Cardiovascular: Regular Rate and rhythm, normal S1 and S2 without murmur, rub or gallop Abdomen: Soft and nontender, no organomegaly, no guarding and rigidity, bowel sounds present Neuro: No focal weakness in the upper and lower limb muscles, power of the muscles 5/5 bilateral upper and lower extremities, normal reflexes bilaterally. Cranial nerves intact Extremities: No cyanosis,clubbing or edema Skin: Warm and Dry. No lesions Psych: Normal affect Coagulation Studies Laboratory Tests Test 09/17/25 14:55 D-Dimer 0.74 MG/L FEU (0-0.50) H D-Dimer Comment Assessment Assessment 54 year old female with history of hypertension, hyperlipidemia, gout, stage 4 CKD, asthma admitted for management of COPD exacerbation. Plan Plan Acute Hypoxemic Respiratory Failure 2/2 COPD exacerbation Acute pulmonary edema Reactive leukocytosis likely secondary to steroids Shortness of breath and wheezing worsened this morning She does not use oxygen at home She is saturating well on 4 L O2 NC CXR (09/17/25) showed no acute cardiopulmonary abnormality Repeat checks the esterase shows significant pulmonary edema WBC has elevated, most likely due to steroids SIRS criteria not met Trigger unclear (no viral symptoms, COVID/flu negative) Plan: Continue IV ceftriaxone 1 gm and IV azithromycin 500 mg - day 3 Decreased IV methylprednisolone to 62.5 mg b.i.d. Continue Duoneb (albuterol / ipratropium) q4h scheduled & q2h PRN Continue Incentive spirometry and flutter IV fluids of his stopped Single dose of IV Lasix 20 mg given Plan to discharge patient on Symbicort scheduled b.i.d. Pulmonary function testing outpatient Suspicion of PE-ruled out Wells score is 1.5 D-dimer is mildly elevated- 0.74 Echo shows LVEF of 65%, RVSP 15 mm Hg, concentric hypertrophy of LV, thickened RV free wall, trace mitral regurgitation and trivial tricuspid regurgitation. CTA could not be done as patient has CKD and creatinine is elevated V/Q scan shows no evidence of pulmonary embolism Stage 4 CKD (Cr 4.43, eGFR 10) Probably secondary to hypertensionor diabetes; hypertensive nephropathy/diabetic nephropathy Advanced CKD followed by outpatient nephrology, Dr Hebert Davidson Creatinine has continued to up trend with poor urine output BNP may be falsely elevated due to renal disease Bicarbonate is 18.3, consider drip if bicarbonate < 15 Fluids discontinued in view of fluid overload Renal ultrasound (09/17/25) showed echogenic bilateral kidneys suggestive of chronic medical renal disease and no hydronephrosis Dr. Muñoz recommended Lev placement for dialysis Hypertensive urgency-resolved Blood pressure is 138/85 She uses diltiazem 180 mg and carvedilol 25 mg BID at home, as per patient she does not have a history of AFib and uses diltiazem and carvedilol for hypertension Continued home antihypertensives Continue amlodipine 5 mg IV hydralazine prn if systolic BP > 180 mm Hg Questionable history of AFib Steven Vasc score 3 Patient takes diltiazem 180 mg at home As per patient, she does not have a history of AFib and uses diltiazem for hypertension Tele (09/17/25) showed sinus tachycardia Her pulse rate has stabilized, currently in the 80s Continued home medication diltiazem 180 mg Patient is not on blood thinners Type 2 diabetes mellitus HbA1C is 8% Poor glycemic control Currently not on any antidiabetic medications Increased Lantus to 20 units Increase lispro 7 units along with high-dose hyperglycemia/hypoglycemia protocol Monitor glucose Gout Patient uses Allopurinol at home She uses allopurinol 300 mg daily at home which is not renally dosed Continue allopurinol 100 mg dosage, which is renally dosed If GFR <10 ,consider 50 mg daily or 100 mg every other day Uric acid is elevated-7.4 Outpatient follow up Hyperlipidemia LDL is 147 She uses atorvastatin 20 mg at home Increased atorvastatin to 40 mg Outpatient follow up DVT Prophylaxis: Heparin SQ Nutrition: Renal diet PT: Ordered Prognosis: Guarded Disposition: Continue IV antibiotics, steroids and DuoNebs, monitor creatinine and blood pressure Resident attestation: Patient has been discussed in detail with senior resident (PGY-3), as well as attending physician, Dr. Torrie Chung MD Internal Medicine Resident PGY-2 Date of Service: Sep 19, 2025 Billing Provider: BAMBI SALAZAR MD, LEONARDO LUIS Sep 19, 2025 18:26
[2025-09-19] MEDS ORDERED: normal saline 1000ml 100 ML IV PRN (19:10)
[2025-09-19] MEDS: heparin 1,000 units/ml 10ml inj HE ONE ×2 (19:39→19:40)
[2025-09-19] MEDS: mannitol 12.5gm/50mL VIAL IV ONE (19:40)
--- NOTE | 2025-09-19 22:25 | PROGRESS NOTE ---
Progress Note Dictate Providers to CC ~ Progress Note: his patient with advanced CKD, hypertension, diabetes, and asthma presented with acute hypoxic respiratory failure, likely multifactorial (asthma exacerbation, possible CHF). She is at high risk for further renal injury and requires careful management of volume status, blood pressure, and medication dosing. Antibiotic Ordered?: N/A Subjective Subjective We have been some information from [employer] machine adjuster's office down in quarantine, she wants to transfer care appear to our group, she has advanced CKD 4/5, now nausea, weakness, fatigue, poor appetite, pruritus, some weight loss all consistent with uremia, we will plan for catheter placement today Objective Vitals Vital Signs Date Time Temp Pulse Resp B/P (MAP) Pulse Ox O2 Delivery O2 Flow Rate FiO2 09/19/25 21:16 106 09/19/25 20:27 18 Nasal Cannula 4.0 09/19/25 20:18 96 36 09/19/25 19:45 98.6 159/96 (117) Lab Results: 09/19/25 1110 09/19/25 0544 Coagulation Studies Laboratory Tests Test 09/17/25 14:55 D-Dimer 0.74 MG/L FEU (0-0.50) H D-Dimer Comment Problem\Assessment\Plan Problems/Diagnosis: (1) Acute kidney injury superimposed on CKD Assessment & Plan: Acute on Chronic Kidney Disease (Stage IV CKD) Signs of uremia today, we will place a catheter and begin dialysis, we will plan to to PD at her dialysis center after discharge. Monitor renal function daily (BUN/Cr, electrolytes, urine output). Baseline creatinine is elevated at 4.43, BUN 44, with known CKD IV; risk for further REAGAN given acute illness, hypoxia, and possible volume shifts. Review and adjust nephrotoxic medications. Avoid NSAIDs, minimize contrast exposure, and review allopurinol dosing (currently 100 mg in hospital, previously 300 mg at home). Optimize volume status. Assess for volume overload vs. depletion; physical exam and daily weights; consider diuretics if evidence of fluid overload, but monitor for hypovolemia. Monitor for metabolic derangements. CO2 is low (21.2), monitor for metabolic acidosis; correct as needed. Renal dosing of all medications. Ensure all antibiotics and other medications are dosed appropriately for eGFR. (2) Acute and chronic respiratory failure with hypoxia Assessment & Plan: Acute Hypoxic Respiratory Failure (Asthma Exacerbation vs. Cardiac Etiology) improved Continue inhaled bronchodilators and systemic steroids. Patient responded to IV methylprednisolone and DuoNeb; continue scheduled bronchodilators and taper steroids as clinically indicated. Monitor for infection. Productive cough with white sputum, but afebrile and negative for COVID/influenza; empiric azithromycin and ceftriaxone are reasonable pending further workup. Monitor oxygenation and wean as tolerated. Maintain SpO2 >90%; currently on room air with improvement. Evaluate for cardiac contribution (CHF). Elevated BNP (2995) and hypertension suggest possible heart failure exacerbation; monitor for signs of volume overload. (3) Hypertensive emergency (4) Heart failure Assessment & Plan: Heart Failure with Preserved Ejection Fraction (HFpEF) Suspected Monitor for volume overload. BNP markedly elevated; assess for JVD, edema, rales. Optimize fluid balance. Diurese if evidence of overload, but balance with CKD status. Continue guideline-directed medical therapy. Carvedilol, amlodipine, diltiazem; review for possible adjustments. (5) Diabetes mellitus Assessment & Plan: Type 2 Diabetes Mellitus Monitor blood glucose closely. Admission glucose 176; on insulin glargine and lispro in hospital. Adjust insulin as needed for stress hyperglycemia. No recent A1c; monitor for hypoglycemia, especially with reduced oral intake or renal dysfunction. (6) Gout Assessment & Plan: Gout Continue allopurinol at renally adjusted dose. Currently on 100 mg in hospital; monitor for acute gout flares, especially with diuretic use or acute illness. Sepsis Screening Skin Color: Normal WALL,JOSE M III DO Sep 19, 2025 22:25
[2025-09-19] MEDS: insulin glargine (Lantus) pen - multi-dose SQ SCH (22:46)
[2025-09-20] VITALS (21 sets, daily range): BP systolic 118–152; BP diastolic 76–102; PULSE 69–98; RESP 16–18; TEMP 97.3–98.6; O2SAT 93–99
[2025-09-20 05:52] LABS: MEAN PLATELET VOLUME 9.0 FL (7.4-10.4); RED CELL DISTRIBUTION WIDTH 14.5 % (11.5-14.5)
[2025-09-20 06:15] LABS: PRO BRAIN NATRIURETIC PEPTIDE 3215 PG/ML (0-125); TOTAL CARBON DIOXIDE 22.9 MMOL/L (24-32)
[2025-09-20 06:29] LABS: CREATININE 4.02 MG/DL (0.40-0.90); eCRCL 13 ML/MIN; eGFR 12 ML/MIN
[2025-09-20] MEDS ORDERED: normal saline 1000ml 100 ML IV PRN (08:00)
[2025-09-20] MEDS: mannitol 12.5gm/50mL VIAL IV PRN (08:42)
[2025-09-20] MEDS: heparin 1,000 units/ml 10ml inj HE ONE ×2 (08:47)
--- NOTE | 2025-09-20 09:32 | PROGRESS NOTE- Residence ---
Progress Note - Resident Providers to CC Resident Creating Document: LUIZ MERCEDES RES ~ Antibiotic Timeout Antibiotic Ordered?: Yes Subjective Patient was seen and examined bedside. He is resting comfortably in the bed. She states that her shortness of breath is better, but still has mild wheezing. She denies chest pain, fever, chills, swelling of legs or any other new complaints. She is getting dialysis through Lev catheter. Objective Vital Signs Date Time Temp Pulse Resp B/P (MAP) Pulse Ox O2 Delivery O2 Flow Rate FiO2 09/20/25 08:50 89 18 140/98 (112) 98 Nasal Cannula 2.0 09/20/25 07:20 98.5 09/20/25 07:20 32 Result Diagram: 09/20/2542709/20/25427 Awake , alert, and oriented x4, resting comfortably in bed, in no acute distress HEENT: Atraumatic, normocephalic, EOMI, anicteric sclera ; pink conjunctiva, moist mucous membranes Neck: Trachea midline. Supple, full range of motion, no JVD Cardiac: Regular rhythm, regular rate with no murmurs all over the precordium. Respiratory: Diminished breath sounds bilaterally with wheezing, no tachypnea, rub or rales, Chest wall is symmetric and without deformity. Gastrointestinal: Abdomen symmetric, non-distended, soft, non-tender, normal bowel sounds x4 quadrant, normoactive, no hepatosplenomegaly Musculoskeletal: No pedal edema, no cyanosis Neurological: Speech is clear, alert, and oriented x 4. No motor or sensory deficit, deep tendon reflexes normal, cerebellar intact. Cranial nerves II-XII intact. Skin: Warm and dry Coagulation Studies Laboratory Tests Test 09/17/25 14:55 D-Dimer 0.74 MG/L FEU (0-0.50) H D-Dimer Comment Assessment Assessment 54 year old female with history of hypertension, hyperlipidemia, gout, stage 4 CKD, asthma admitted for management of COPD exacerbation and REAGAN on CKD stage 4. Plan Plan Acute Hypoxemic Respiratory Failure 2/2 COPD exacerbation, improving Reactive leukocytosis likely secondary to steroids Shortness of breath and wheezing getting better She does not use oxygen at home She is saturating well on 3 L O2 NC CXR (09/17/25) showed no acute cardiopulmonary abnormality CXR (09/19/25) shows no cardiopulmonary abnormality WBC has downtrended from 21.4 to 18.7 SIRS criteria not met Trigger unclear (no viral symptoms, COVID/flu negative) Plan: Continue IV ceftriaxone 1 gm and IV azithromycin 500 mg - day 4 Continue IV methylprednisolone to 62.5 mg b.i.d. Continue Duoneb (albuterol / ipratropium) q4h scheduled & q2h PRN Continue Incentive spirometry and flutter Plan to discharge patient on Symbicort scheduled b.i.d. Pulmonary function testing outpatient Suspicion of PE-ruled out Wells score is 1.5 D-dimer is mildly elevated- 0.74 Echo shows LVEF of 65%, RVSP 15 mm Hg, concentric hypertrophy of LV, thickened RV free wall, trace mitral regurgitation and trivial tricuspid regurgitation. CTA could not be done as patient has CKD and creatinine is elevated V/Q scan shows no evidence of pulmonary embolism REAGAN on Stage 4 CKD (Cr 4.43, eGFR 10), most likely multifactorial Prerenal ( Dehydration, Vasomotor nephropathy) and Intrinsic 2/2 Acute tubular necrosis Advanced CKD followed by outpatient nephrology, Dr Hebert Davidson Creatinine has downtrended from 4.51 to 4.02 BUN has downtrended from 59 to 52 BUN/ Cr is normal Negative fluid balance of 100 mL over last 12 hours Fena - 10.1 %, Urine sodium is 99 BNP may be falsely elevated due to renal disease Bicarbonate has up trended from 18.3 to 22.9, consider drip if bicarbonate < 15 Renal ultrasound (09/17/25) showed echogenic bilateral kidneys suggestive of chronic medical renal disease and no hydronephrosis Hepatitis-B serology pending Lev catheter is in place and patient is receiving dialysis-day 1 Consider requirement of TDC placement and dialysis chair Hypertensive urgency-resolved Blood pressure is 136/76 She uses diltiazem 180 mg and carvedilol 25 mg BID at home, as per patient she does not have a history of AFib and uses diltiazem and carvedilol for hypertension Continued home antihypertensives Continue amlodipine 5 mg IV hydralazine prn if systolic BP > 180 mm Hg Questionable history of AFib Steven Vasc score 3 Patient takes diltiazem 180 mg at home As per patient, she does not have a history of AFib and uses diltiazem for hypertension Tele (09/17/25) showed sinus tachycardia Her pulse rate has stabilized, currently in the 80s Continued home medication diltiazem 180 mg Patient is not on blood thinners Type 2 diabetes mellitus HbA1C is 8% Poor glycemic control Currently not on any antidiabetic medications Increased Lantus to 22 units Increased lispro to 10 units scheduled along with high-dose hyperglycemia/hypoglycemia protocol Monitor glucose Gout Patient uses Allopurinol at home She uses allopurinol 300 mg daily at home which is not renally dosed Continue allopurinol 100 mg dosage, which is renally dosed If GFR <10 ,consider 50 mg daily or 100 mg every other day Uric acid is elevated-7.4 Outpatient follow up Hyperlipidemia LDL is 147 She uses atorvastatin 20 mg at home Increased atorvastatin to 40 mg Outpatient follow up Substance use disorder Urine drug screen is positive for cannabinoids manager creative services and substance use navigator consulted DVT Prophylaxis: Heparin SQ Nutrition: Renal diet PT: Ordered Prognosis: Guarded Disposition: Continue IV antibiotics, steroids and DuoNebs, monitor creatinine, Lev catheter is in place and she is getting dialysis today- day 1, follow Dr. Muñoz recommendations. Resident MD attestation: The patient note has been reviewed and supervised by senior residents PGY-2/ PGY-3. Patient was seen, examined and discussed with attending physician, Dr. Torrie Mercedes MD Internal Medicine resident, PGY-1 Date of Service: Sep 20, 2025 Billing Provider: BAMBI SALAZAR MD, PREETHI, RES Sep 20, 2025 09:32
[2025-09-20] MEDS: INSULIN LISPRO 100 UNIT/ML INSULN.PEN MULTI-DOSE SQ SCH (17:13)
--- NOTE | 2025-09-20 18:41 | PROGRESS NOTE ---
Progress Note Dictate Providers to CC ~ Progress Note: This patient with advanced CKD, hypertension, diabetes, and asthma presented with acute hypoxic respiratory failure, likely multifactorial (asthma exacerbation, possible CHF). She is at high risk for further renal injury and requires careful management of volume status, blood pressure, and medication dosing. Antibiotic Ordered?: N/A Subjective Subjective She reports feeling better after starting dialysis, today is treatment number 2 of 3 initial treatments. Objective Vitals Vital Signs Date Time Temp Pulse Resp B/P (MAP) Pulse Ox O2 Delivery O2 Flow Rate FiO2 09/20/25 16:36 83 18 Nasal Cannula 3.0 09/20/25 16:31 95 32 09/20/25 14:31 129/79 (96) 09/20/25 10:00 97.9 Alert RRR w/o murmur CTAB +BS, NT Trace edema Lab Results: 09/20/25 0428 09/20/25 0428 Coagulation Studies Laboratory Tests Test 09/17/25 14:55 D-Dimer 0.74 MG/L FEU (0-0.50) H D-Dimer Comment Other Results I & O 09/20/25 07:00 Intake Total 2200 ml Output Total 2301 ml Balance -101 ml Intake Oral 1700 ml Hemodialysis 500 ml Output Urine Total 300 ml Stool Total 1 ml Hemodialysis 2000 ml # Voids 3 Problem\Assessment\Plan Problems/Diagnosis: (1) Acute kidney injury superimposed on CKD Assessment & Plan: Acute on Chronic Kidney Disease (Stage 5 CKD) Signs of uremia, we will begin dialysis, we will plan to to PD at her dialysis center after discharge. Monitor renal function daily (BUN/Cr, electrolytes, urine output). Baseline creatinine is elevated at 4.43, BUN 44, with known CKD IV; risk for further REAGAN given acute illness, hypoxia, and possible volume shifts. Review and adjust nephrotoxic medications. Avoid NSAIDs, minimize contrast exposure, and review allopurinol dosing (currently 100 mg in hospital, previously 300 mg at home). Optimize volume status. Assess for volume overload vs. depletion; physical exam and daily weights; consider diuretics if evidence of fluid overload, but monitor for hypovolemia. Monitor for metabolic derangements. CO2 is low (21.2), monitor for metabolic acidosis; correct as needed. Renal dosing of all medications. Ensure all antibiotics and other medications are dosed appropriately for eGFR. She and I had a lengthy discussion regarding dialysis risks, benefits, other alternatives, and likely outcomes she wants to move forward with dialysis now. (2) Acute and chronic respiratory failure with hypoxia Assessment & Plan: Acute Hypoxic Respiratory Failure (Asthma Exacerbation vs. Cardiac Etiology) improved Continue inhaled bronchodilators and systemic steroids. Patient responded to IV methylprednisolone and DuoNeb; continue scheduled bronchodilators and taper steroids as clinically indicated. Monitor for infection. Productive cough with white sputum, but afebrile and negative for COVID/influenza; empiric azithromycin and ceftriaxone are reasonable pending further workup. Monitor oxygenation and wean as tolerated. Maintain SpO2 >90%; currently on room air with improvement. Evaluate for cardiac contribution (CHF). Elevated BNP (2995) and hypertension suggest possible heart failure exacerbation; monitor for signs of volume overload. (3) Hypertensive emergency Assessment & Plan: Blood pressure goal less than 140/90 Continue Amlodipine, Carvedilol, Cardizem, consider ARB if not at goal (4) Heart failure Assessment & Plan: Heart Failure with Preserved Ejection Fraction (HFpEF) Suspected Monitor for volume overload. BNP markedly elevated; assess for JVD, edema, rales. Optimize fluid balance. Diurese if evidence of overload, but balance with CKD status. Continue guideline-directed medical therapy. Carvedilol, amlodipine, diltiazem; review for possible adjustments. (5) Diabetes mellitus Assessment & Plan: Type 2 Diabetes Mellitus Monitor blood glucose closely. Admission glucose 176; on insulin glargine and lispro in hospital. Adjust insulin as needed for stress hyperglycemia. No recent A1c; monitor for hypoglycemia, especially with reduced oral intake or renal dysfunction. (6) Gout Assessment & Plan: Gout Continue allopurinol at renally adjusted dose. Currently on 100 mg in hospital; monitor for acute gout flares, especially with diuretic use or acute illness. Sepsis Screening Skin Color: Normal WALL,JOSE M III DO Sep 20, 2025 18:41
[2025-09-20 21:17] LABS: % IRON SATURATION 53 % (11-46)
[2025-09-20] MEDS: insulin glargine (Lantus) pen - multi-dose SQ SCH (21:48)
[2025-09-21] VITALS (21 sets, daily range): BP systolic 113–158; BP diastolic 76–102; PULSE 83–100; RESP 13–18; TEMP 97.7–98.4; O2SAT 89–98
[2025-09-21 06:02] LABS: MEAN PLATELET VOLUME 9.5 FL (7.4-10.4); RED CELL DISTRIBUTION WIDTH 14.9 % (11.5-14.5)
[2025-09-21 06:53] LABS: CREATININE 4.04 MG/DL (0.40-0.90); TOTAL CARBON DIOXIDE 22.3 MMOL/L (24-32); eCRCL 12 ML/MIN; eGFR 11 ML/MIN
[2025-09-21] MEDS: mannitol 12.5gm/50mL VIAL IV PRN (07:18)
[2025-09-21] MEDS ORDERED: normal saline 1000ml 100 ML IV PRN (08:00)
[2025-09-21] MEDS: EPOETIN ALFA-EPBX 20,000 UNIT/ML 1 ML MDV IV ONE (08:49)
[2025-09-21] MEDS: guaiFENesin ER 600mg tablet PO SCH (11:23)
--- NOTE | 2025-09-21 13:17 | PROGRESS NOTE- Residence ---
Progress Note - Resident Providers to CC Resident Creating Document: LUIZ MERCEDES RES ~ Antibiotic Timeout Antibiotic Ordered?: Yes Subjective Patient was seen and examined bedside. She is resting comfortably in the bed. She states that her cough has worsened today and still has wheezing. She reports diffuse chest pain after the breathing treatments. She denies fever, chills, swelling of legs or any other new complaints. She is getting dialysis through Lev catheter, today is day 2. Objective Vital Signs Date Time Temp Pulse Resp B/P (MAP) Pulse Ox O2 Delivery O2 Flow Rate FiO2 09/21/25 12:07 88 18 Nasal Cannula 3.0 09/21/25 12:02 94 32 09/21/25 10:00 97.7 113/76 (88) Result Diagram: 09/21/25 0435 09/21/25 0435 Awake , alert, and oriented x4, resting comfortably in bed, in no acute distress HEENT: Atraumatic, normocephalic, EOMI, anicteric sclera ; pink conjunctiva, moist mucous membranes Neck: Trachea midline. Supple, full range of motion, no JVD Cardiac: Regular rhythm, regular rate with no murmurs all over the precordium. Respiratory: Diminished breath sounds bilaterally with severe wheezing, no tachypnea, rub or rales, Chest wall is symmetric and without deformity. Gastrointestinal: Abdomen symmetric, non-distended, soft, non-tender, normal bowel sounds x4 quadrant, normoactive, no hepatosplenomegaly Musculoskeletal: No pedal edema, no cyanosis Neurological: Speech is clear, alert, and oriented x 4. No motor or sensory deficit, deep tendon reflexes normal, cerebellar intact. Cranial nerves II-XII intact. Skin: Warm and dry Coagulation Studies Laboratory Tests Test 09/17/25 14:55 D-Dimer 0.74 MG/L FEU (0-0.50) H D-Dimer Comment Assessment Assessment 54 year old female with history of hypertension, hyperlipidemia, gout, stage 4 CKD, asthma admitted for management of COPD exacerbation and REAGAN on CKD stage 4. Plan Plan Acute Hypoxemic Respiratory Failure 2/2 COPD exacerbation, improving Reactive leukocytosis likely secondary to steroids She is saturating well on 3 L O2 NC Severe wheezing present She does not use oxygen at home CXR (09/17/25) showed no acute cardiopulmonary abnormality CXR (09/19/25) shows no cardiopulmonary abnormality WBC has downtrended from 18.7 to 17.6 Trigger unclear (no viral symptoms, COVID/flu negative) Plan: Continue IV ceftriaxone 1 gm - day 5 Course of IV azithromycin 500 mg is completed Continue IV methylprednisolone to 62.5 mg b.i.d. Continue Duoneb (albuterol / ipratropium) q4h scheduled & q2h PRN Continue Incentive spirometry and flutter Guaifenesin 600 mg b.i.d. Plan to discharge patient on Symbicort scheduled b.i.d. Pulmonary function testing outpatient Suspicion of PE-ruled out Wells score is 1.5 D-dimer is mildly elevated- 0.74 Echo shows LVEF of 65%, RVSP 15 mm Hg, concentric hypertrophy of LV, thickened RV free wall, trace mitral regurgitation and trivial tricuspid regurgitation. CTA could not be done as patient has CKD and creatinine is elevated V/Q scan shows no evidence of pulmonary embolism REAGAN on Stage 4 CKD (Cr 4.43, eGFR 10), most likely multifactorial Prerenal ( Dehydration, Vasomotor nephropathy) and Intrinsic 2/2 Acute tubular necrosis Normocytic normochromic anemia, most likely anemia in CKD Advanced CKD followed by outpatient nephrology, Dr Hebert Davidson Creatinine is 4.04, BUN is 61 BUN/ Cr is normal Negative fluid balance of 1605 mL over last 12 hours Fena - 10.1 %, Urine sodium is 99 BNP may be falsely elevated due to renal disease Bicarbonate is 22.3, consider drip if bicarbonate < 15 Renal ultrasound (09/17/25) showed echogenic bilateral kidneys suggestive of chronic medical renal disease and no hydronephrosis Calcium and phosphorus are normal, monitor potassium Hepatitis-B serology pending, follow up parathyroid hormone H&H-10.7/33.2 Serum iron is normal % saturation is high TIBC is low-255 Lev catheter is in place and patient is receiving dialysis-day 2 Consider requirement of TDC placement and dialysis chair Hypertensive urgency-resolved Blood pressure is stable She uses diltiazem 180 mg and carvedilol 25 mg BID at home, as per patient she does not have a history of AFib and uses diltiazem and carvedilol for hypertension Continued home antihypertensives Continue amlodipine 5 mg IV hydralazine prn if systolic BP > 180 mm Hg Questionable history of AFib Steven Vasc score 3 Tele shows sinus rhythm Patient takes diltiazem 180 mg at home As per patient, she does not have a history of AFib and uses diltiazem for hypertension Her pulse rate has stabilized, currently in the 80s Continued home medication diltiazem 180 mg Patient is not on blood thinners Type 2 diabetes mellitus HbA1C is 8% Poor glycemic control Currently not on any antidiabetic medications Increased Lantus to 25 units Increased lispro to 12 units scheduled along with high-dose hyperglycemia/hypoglycemia protocol Monitor glucose Gout Patient uses Allopurinol at home She uses allopurinol 300 mg daily at home which is not renally dosed Continue allopurinol 100 mg dosage, which is renally dosed If GFR <10 ,consider 50 mg daily or 100 mg every other day Uric acid is elevated-7.4 Outpatient follow up Hyperlipidemia LDL is 147 She uses atorvastatin 20 mg at home Increased atorvastatin to 40 mg Outpatient follow up Substance use disorder Urine drug screen is positive for cannabinoids services manager and substance use navigator consulted DVT Prophylaxis: Heparin SQ Nutrition: Carb controlled diet PT: Ordered Prognosis: Guarded Disposition: Continue IV Rocephin, steroids and DuoNebs, monitor creatinine, Lev catheter is in place and she is getting dialysis today- day 2, follow Dr. Muñoz recommendations. Resident MD attestation: The patient note has been reviewed and supervised by senior residents PGY-2/ PGY-3. Patient was seen, examined and discussed with attending physician, Dr. Torrie Mercedes MD Internal Medicine resident, PGY-1 Date of Service: Sep 21, 2025 Billing Provider: BAMBI SALAZAR MD, PREETHI, RES Sep 21, 2025 13:16
[2025-09-21] MEDS: INSULIN LISPRO 100 UNIT/ML INSULN.PEN MULTI-DOSE SQ SCH (13:20)
--- NOTE | 2025-09-21 16:08 | RADIOLOGY REPORT ---
EXAM: DI CHEST,SINGLE VIEW HISTORY: R/O TB. PLEASE, ADDRESS YES OR NO EVIDENCE OF TB TECHNIQUE: 1 view of the chest COMPARISON: DI CHEST,SINGLE VIEW on DOS: 09/19/25 FINDINGS/IMPRESSION: LUNGS: No pleural effusion, consolidation, or pneumothorax. MEDIASTINUM: Normal cardiac size BONES: No acute osseous abnormality. Anterior cervical discectomy and fusion OTHER: Right internal jugular central venous catheter
--- NOTE | 2025-09-21 19:09 | PROGRESS NOTE ---
Progress Note Dictate Providers to CC ~ Central Line/PICC still needed: Yes Central Line/PICC Necessity: Req HD/Plasmapheresis Muñoz Indications Met/Not Met: F/C Indications Not Met Antibiotic Ordered?: N/A Subjective Subjective The patient underwent dialysis today. tolerated well. Objective Vitals Vital Signs Date Time Temp Pulse Resp B/P (MAP) Pulse Ox O2 Delivery O2 Flow Rate FiO2 09/21/25 15:51 96 09/21/25 15:29 18 Nasal Cannula 3.0 09/21/25 15:28 97 32 09/21/25 10:00 97.7 113/76 (88) Lab Results: 09/21/25 0435 09/21/25 0435 Objective Vital Signs: As above General: Normal body habitus, no acute distress. Skin: No rashes, lumps, ulcers, blisters, purpura or petechiae HEENT: Anicteric sclera, JANE Neck: Supple and nontender without enlargement of the thyroid, or lymphadenopathy. Chest: Normal size and shape, no tenderness, CTA bilaterally Heart: Regular. No jugular venous distention, S1 and S2 heard , no gallop Abdomen: Soft and non tender no organomegaly,BS+ Extremities: No pedal edema Neuro: Nonfocal. Coagulation Studies Laboratory Tests Test 09/17/25 14:55 D-Dimer 0.74 MG/L FEU (0-0.50) H D-Dimer Comment Advance Care Planning Advanced Care plannin - 30 Minutes Problem\Assessment\Plan Problems/Diagnosis: (1) Acute kidney injury superimposed on CKD Assessment & Plan: Acute on Chronic Kidney Disease (Stage 5 CKD) Signs of uremia, had 3rd hd today. neds outpatient dialysis placement. needs TDC. Monitor renal function daily (BUN/Cr, electrolytes, urine output). Baseline creatinine is elevated at 4.43, BUN 44, with known CKD IV; risk for further REAGAN given acute illness, hypoxia, and possible volume shifts. Review and adjust nephrotoxic medications. Avoid NSAIDs, minimize contrast exposure, and review allopurinol dosing (currently 100 mg in hospital, previously 300 mg at home). Optimize volume status. Assess for volume overload vs. depletion; physical exam and daily weights; consider diuretics if evidence of fluid overload, but monitor for hypovolemia. Monitor for metabolic derangements. CO2 is low (21.2), monitor for metabolic acidosis; correct as needed. Renal dosing of all medications. Ensure all antibiotics and other medications are dosed appropriately for eGFR. (2) Acute and chronic respiratory failure with hypoxia Assessment & Plan: Acute Hypoxic Respiratory Failure (Asthma Exacerbation vs. Cardiac Etiology) improved Continue inhaled bronchodilators and systemic steroids. Patient responded to IV methylprednisolone and DuoNeb; continue scheduled bronchodilators and taper steroids as clinically indicated. Monitor for infection. Productive cough with white sputum, but afebrile and negative for COVID/influenza; empiric azithromycin and ceftriaxone are reasonable pending further workup. Monitor oxygenation and wean as tolerated. Maintain SpO2 >90%; currently on room air with improvement. Evaluate for cardiac contribution (CHF). Elevated BNP (2995) and hypertension suggest possible heart failure exacerbation; monitor for signs of volume overload. (3) Hypertensive emergency Assessment & Plan: resolved (4) Heart failure (5) Diabetes mellitus (6) Gout Sepsis Screening Skin Color: Normal RILEY STEVE MD Sep 21, 2025 19:08
[2025-09-21] MEDS: insulin glargine (Lantus) pen - multi-dose SQ SCH (22:31)
[2025-09-22] VITALS (20 sets, daily range): BP systolic 117–157; BP diastolic 75–96; PULSE 77–95; RESP 14–21; TEMP 97.4–98.1; O2SAT 90–98
[2025-09-22 05:43] LABS: MEAN PLATELET VOLUME 9.3 FL (7.4-10.4); RED CELL DISTRIBUTION WIDTH 14.6 % (11.5-14.5)
[2025-09-22 06:12] LABS: CREATININE 4.01 MG/DL (0.40-0.90); TOTAL CARBON DIOXIDE 26.1 MMOL/L (24-32); eCRCL 13 ML/MIN; eGFR 12 ML/MIN
[2025-09-22] MEDS: INSULIN LISPRO 100 UNIT/ML INSULN.PEN MULTI-DOSE SQ SCH (08:38)
--- NOTE | 2025-09-22 08:43 | PROGRESS NOTE ---
Progress Note Dictate Providers to CC ~ Central Line/PICC still needed: Yes Central Line/PICC Necessity: Req HD/Plasmapheresis Muñoz Indications Met/Not Met: F/C Indications Not Met Antibiotic Ordered?: N/A Subjective Subjective wbc higher. most likely from the steroids. I stopped her solumedrol today hoping that the wbc count will start falling. cutlures from 09/19 was negative. She needs TDC. She cannot be discharged before that is done. I have requested to place one tomorrow. She will be dialyzed after that. outpatient placment for hd is pending. Objective Vitals Vital Signs Date Time Temp Pulse Resp B/P (MAP) Pulse Ox O2 Delivery O2 Flow Rate FiO2 09/22/25 15:29 79 14 Room Air 0.0 09/22/25 15:19 90 21 09/22/25 13:52 117/80 (92) 09/22/25 10:00 98.0 Lab Results: 09/22/25 0520 09/22/25 0520 Objective Vital Signs: As above General: Normal body habitus, no acute distress. Skin: No rashes, lumps, ulcers, blisters, purpura or petechiae HEENT: Anicteric sclera, JANE Neck: Supple and nontender without enlargement of the thyroid, or lymphadenopathy. Chest: Normal size and shape, no tenderness, CTA bilaterally Heart: Regular. No jugular venous distention, S1 and S2 heard , no gallop Abdomen: Soft and non tender no organomegaly,BS+ Extremities: No pedal edema Neuro: Nonfocal. Coagulation Studies Laboratory Tests Test 09/17/25 14:55 D-Dimer 0.74 MG/L FEU (0-0.50) H D-Dimer Comment Advance Care Planning Advanced Care plannin - 30 Minutes Problem\Assessment\Plan Problems/Diagnosis: (1) Acute kidney injury superimposed on CKD Assessment & Plan: Acute on Chronic Kidney Disease (Stage 5 CKD) She has been started on HD and has had 3 sessions so far. needs TDC. (2) Acute and chronic respiratory failure with hypoxia Assessment & Plan: resolved. she is on room air. STOP steroids. (3) Hypertensive emergency Assessment & Plan: resolved (4) Heart failure Assessment & Plan: Normal LV size with concentric hypertrophy. Overall systolic function is normal. overall LVEF is 65%. She has HFpEF (5) Diabetes mellitus Assessment & Plan: check serology for complettion. She has nephrotic range proteinuria. (6) Gout Assessment & Plan: stable. Sepsis Screening Skin Color: Normal RILEY STEVE MD Sep 22, 2025 08:43
[2025-09-22] MEDS: Nepro carb steady vanilla 8oz. PO SCH (17:30)
--- NOTE | 2025-09-22 17:41 | PROGRESS NOTE- Residence ---
Progress Note - Resident Providers to CC Resident Creating Document: LUIZ MERCEDES RES ~ Antibiotic Timeout Antibiotic Ordered?: Yes Subjective Patient was seen and examined bedside. She is resting comfortably in the bed. She states that her cough, shortness of breath and wheezing has improved today. She is saturating well on room air. She denies fever, chills, swelling of legs or any other new complaints. She got 3 sessions of dialysis through Lev catheter. TDC will be placed tomorrow and pending dialysis chair. Objective Vital Signs Date Time Temp Pulse Resp B/P (MAP) Pulse Ox O2 Delivery O2 Flow Rate FiO2 09/22/25 15:29 79 14 Room Air 0.0 09/22/25 15:19 90 21 09/22/25 13:52 117/80 (92) 09/22/25 10:00 98.0 Result Diagram: 09/22/25 0520 09/22/25 0520 Awake, alert, and oriented x4, resting comfortably in bed, in no acute distress HEENT: Atraumatic, normocephalic, EOMI, anicteric sclera ; pink conjunctiva, moist mucous membranes Neck: Trachea midline. Supple, full range of motion, no JVD Cardiac: Regular rhythm, regular rate with no murmurs all over the precordium. Respiratory: Diminished breath sounds bilaterally with mild wheezing, no tachypnea, rub or rales, Chest wall is symmetric and without deformity. Gastrointestinal: Abdomen symmetric, non-distended, soft, non-tender, normal bowel sounds x4 quadrant, normoactive, no hepatosplenomegaly Musculoskeletal: No pedal edema, no cyanosis Neurological: Speech is clear, alert, and oriented x 4. No motor or sensory deficit, deep tendon reflexes normal, cerebellar intact. Cranial nerves II-XII intact. Skin: Warm and dry Coagulation Studies Laboratory Tests Test 09/17/25 14:55 D-Dimer 0.74 MG/L FEU (0-0.50) H D-Dimer Comment Assessment Assessment 54 year old female with history of hypertension, hyperlipidemia, gout, stage 4 CKD, asthma admitted for management of COPD exacerbation and REAGAN on CKD stage 4. Plan Plan Acute Hypoxemic Respiratory Failure 2/2 COPD exacerbation, improving Reactive leukocytosis likely secondary to steroids She is saturating well on room air She does not use oxygen at home CXR (09/17/25) showed no acute cardiopulmonary abnormality CXR (09/19/25) shows no cardiopulmonary abnormality WBC has up trended to 20.4, stopped IV steroids Plan: Continue IV ceftriaxone 1 gm - day 6 Course of IV azithromycin 500 mg is completed Stopped IV steroids in view of leukocytosis and hyperglycemia Continue Duoneb (albuterol / ipratropium) q4h scheduled & q2h PRN Continue Incentive spirometry and flutter Guaifenesin 600 mg b.i.d. Plan to discharge patient on Symbicort scheduled b.i.d. Pulmonary function testing outpatient Suspicion of PE-ruled out Wells score is 1.5 D-dimer is mildly elevated- 0.74 Echo shows LVEF of 65%, RVSP 15 mm Hg, concentric hypertrophy of LV, thickened RV free wall, trace mitral regurgitation and trivial tricuspid regurgitation. CTA could not be done as patient has CKD and creatinine is elevated V/Q scan shows no evidence of pulmonary embolism REAGAN on Stage 4 CKD (Cr 4.43, eGFR 10), most likely multifactorial Prerenal ( Dehydration, Vasomotor nephropathy) and Intrinsic 2/2 Acute tubular necrosis Normocytic normochromic anemia, most likely anemia in CKD Advanced CKD followed by outpatient nephrology, Dr Hebert Davidson Creatinine has downtrended to 4.01, BUN is 70 BUN/Cr is normal Continue strict I's and o's Fena - 10.1 %, Urine sodium is 99 BNP may be falsely elevated due to renal disease Bicarbonate is normal Renal ultrasound (09/17/25) showed echogenic bilateral kidneys suggestive of chronic medical renal disease and no hydronephrosis Calcium and phosphorus are normal, monitor potassium Hepatitis-B serology pending Pending PTH H&H-11.5/34.8 Serum iron is normal % saturation is high TIBC is low-255 Lev catheter is in place and patient received 3 sessions of dialysis Hepatitis B serology pending TDC placement and dialysis chair pending Hypertensive urgency-resolved Blood pressure is stable She uses diltiazem 180 mg and carvedilol 25 mg BID at home, as per patient she does not have a history of AFib and uses diltiazem and carvedilol for hypertension Continued home antihypertensives Continue amlodipine 5 mg IV hydralazine prn if systolic BP > 180 mm Hg Questionable history of AFib Steven Vasc score 3 Tele shows sinus rhythm Patient takes diltiazem 180 mg at home As per patient, she does not have a history of AFib and uses diltiazem for hypertension Her pulse rate has stabilized, currently in the 80s Continued home medication diltiazem 180 mg Patient is not on blood thinners Type 2 diabetes mellitus HbA1C is 8% Poor glycemic control Currently not on any antidiabetic medications Increased Lantus to 28 units Increased lispro to 14 units scheduled along with high-dose hyperglycemia/hypoglycemia protocol Monitor glucose Pseudohyponatremia Sodium is 132 Hyperglycemia induced hyponatremia Gout Patient uses Allopurinol at home She uses allopurinol 300 mg daily at home which is not renally dosed Continue allopurinol 100 mg dosage, which is renally dosed If GFR <10 ,consider 50 mg daily or 100 mg every other day Uric acid is elevated-7.4 Outpatient follow up Hyperlipidemia LDL is 147 She uses atorvastatin 20 mg at home Increased atorvastatin to 40 mg Outpatient follow up Substance use disorder Urine drug screen is positive for cannabinoids director of clinical services and substance use navigator consulted DVT Prophylaxis: Heparin SQ Nutrition: Carb controlled diet PT: Ordered Prognosis: Guarded Disposition: Continue IV Rocephin and DuoNebs, monitor creatinine, Lev catheter is in place and she received 3 sessions of dialysis, TDC placement tomorrow, follow Dr. Buchanan recommendations, dialysis chair pending Resident attestation: The patient note has been reviewed and supervised by senior residents PGY-2/ PGY-3. Patient was seen, examined and discussed with attending physician, Dr. Torrie Mercedes MD Internal Medicine resident, PGY-1 Date of Service: Sep 22, 2025 Billing Provider: BAMBI SALAZAR MD, PREETHI, RES Sep 22, 2025 17:41
[2025-09-22] MEDS ORDERED: methylPREDNISolone sod succ/PF 40mg inj. IV SCH (20:00)
[2025-09-22] MEDS: insulin glargine (Lantus) pen - multi-dose SQ SCH (21:53)
[2025-09-23] VITALS (22 sets, daily range): BP systolic 116–146; BP diastolic 75–97; PULSE 55–106; RESP 14–18; TEMP 94.9–97.9; O2SAT 93–98
[2025-09-23 05:01] LABS: MEAN PLATELET VOLUME 9.5 FL (7.4-10.4); RED CELL DISTRIBUTION WIDTH 14.2 % (11.5-14.5)
[2025-09-23 05:13] LABS: HBSAG SCREEN Negative (Negative)
[2025-09-23 05:32] LABS: LYMPHOCYTES % (MANUAL) 12.0 % (21-51); METAMYLEOCYTES% (MANUAL) 1.0 % (0-0); MONOCYTES % (MANUAL) 5.0 % (2-12); NEUTROPHILS % (MANUAL) 82.0 % (42-75); NUCLEATED RED BLOOD CELLS 1 /100WBC (0-0); PLATELET ESTIMATE NORMAL
[2025-09-23 05:35] LABS: CREATININE 4.65 MG/DL (0.40-0.90); LACTATE DEHYDROGENASE 204 U/L (81-234); TOTAL CARBON DIOXIDE 22.5 MMOL/L (24-32); eCRCL 11 ML/MIN; eGFR 10 ML/MIN
[2025-09-23] MEDS ORDERED: insulin glargine (Lantus) pen - multi-dose SQ SCH ×2 (08:00→21:00)
[2025-09-23] MEDS ORDERED: albumin (human) 25% 100ml IV 100 ML IV PRN (08:20)
--- NOTE | 2025-09-23 08:26 | PROGRESS NOTE ---
Progress Note Dictate Providers to CC ~ Central Line/PICC still needed: Yes Central Line/PICC Necessity: Req HD/Plasmapheresis Muñoz Indications Met/Not Met: F/C Indications Not Met Antibiotic Ordered?: N/A Subjective Subjective NEEDS TUNNELED DIALYSIS CATH TODAY. Hopefully the placement for outpatient dialysis is done. she is coming closer to discharge, if that is done. Objective Vitals Vital Signs Date Time Temp Pulse Resp B/P (MAP) Pulse Ox O2 Delivery O2 Flow Rate FiO2 09/23/25 06:00 97.6 74 18 141/88 (105) 93 Room Air 09/23/25 03:19 0.0 09/23/25 03:14 21 Lab Results: 09/23/256 09/23/25435 Objective Vital Signs: As above General: Normal body habitus, no acute distress. Skin: No rashes, lumps, ulcers, blisters, purpura or petechiae HEENT: Anicteric sclera, JANE Neck: Supple and nontender without enlargement of the thyroid, or lymphadenopathy. Chest: Normal size and shape, no tenderness, CTA bilaterally Heart: Regular. No jugular venous distention, S1 and S2 heard , no gallop Abdomen: Soft and non tender no organomegaly,BS+ Extremities: No pedal edema Neuro: Nonfocal. Coagulation Studies Laboratory Tests Test 09/17/25 14:55 D-Dimer 0.74 MG/L FEU (0-0.50) H D-Dimer Comment Advance Care Planning Advanced Care plannin - 30 Minutes Problem\Assessment\Plan Problems/Diagnosis: (1) Acute kidney injury superimposed on CKD Assessment & Plan: Acute on Chronic Kidney Disease (Stage 5 CKD) She has been started on HD and has had 3 sessions so far. needs TDC follwed by HD today (2) Acute and chronic respiratory failure with hypoxia Assessment & Plan: resolved. she is on room air. STOP steroids. (3) Hypertensive emergency Assessment & Plan: resolved (4) Heart failure Assessment & Plan: Normal LV size with concentric hypertrophy. Overall systolic function is normal. overall LVEF is 65%. She has HFpEF (5) Diabetes mellitus Assessment & Plan: check serology for complettion. She has nephrotic range proteinuria. (6) Gout Assessment & Plan: stable. Sepsis Screening Skin Color: Normal RILEY STEVE MD Sep 23, 2025 08:26
[2025-09-23] MEDS: INSULIN LISPRO 100 UNIT/ML INSULN.PEN MULTI-DOSE SQ SCH ×2 (09:00→20:09)
[2025-09-23] MEDS: INSULIN LISPRO 100 UNIT/ML INSULN.PEN MULTI-DOSE SQ ONE ×3 (09:25→22:14)
[2025-09-23 11:18] LABS: HEP B CORE AB, TOT Negative (Negative); HEP B SURF AB QUANTITATIVE 124.0 mIU/mL (Immunity>10)
[2025-09-23] MEDS ORDERED: heparin 1,000unit/ml 10ml vial 10 ML ONE (12:10)
--- NOTE | 2025-09-23 15:15 | PROGRESS NOTE- Residence ---
Progress Note - Resident Providers to CC Resident Creating Document: LUIZ MERCEDES RES ~ Antibiotic Timeout Antibiotic Ordered?: Yes Subjective Patient was seen and examined bedside. She is resting comfortably in the bed. She does not complain of any shortness of breath or cough. Mild wheezing present. She is saturating well on room air. She denies fever, chills, swelling of legs or any other complaints. She got 3 sessions of dialysis through Lev catheter. She will be getting TDC today and pending dialysis chair. Objective Vital Signs Date Time Temp Pulse Resp B/P (MAP) Pulse Ox O2 Delivery O2 Flow Rate FiO2 09/23/25 15:00 85 14 135/87 (103) 96 Room Air 09/23/25 14:30 97.9 09/23/25 11:12 0.0 09/23/25 11:06 21 Result Diagram: 09/23/25 0436 09/23/25 0436 Awake, alert, and oriented x4, resting comfortably in bed, in no acute distress HEENT: Atraumatic, normocephalic, EOMI, anicteric sclera ; pink conjunctiva, moist mucous membranes Neck: Trachea midline. Supple, full range of motion, no JVD Cardiac: Regular rhythm, regular rate with no murmurs all over the precordium. Respiratory: Equal breath sounds bilaterally with mild wheezing, no tachypnea, rub or rales, Chest wall is symmetric and without deformity. Gastrointestinal: Abdomen symmetric, non-distended, soft, non-tender, normal bowel sounds x4 quadrant, normoactive, no hepatosplenomegaly Musculoskeletal: No pedal edema, no cyanosis Neurological: Speech is clear, alert, and oriented x 4. No motor or sensory deficit, deep tendon reflexes normal, cerebellar intact. Cranial nerves II-XII intact. Skin: Warm and dry Coagulation Studies Laboratory Tests Test 09/17/25 14:55 D-Dimer 0.74 MG/L FEU (0-0.50) H D-Dimer Comment Assessment Assessment 54 year old female with history of hypertension, hyperlipidemia, gout, stage 4 CKD, asthma admitted for management of COPD exacerbation and REAGAN on CKD stage 4. Plan Plan Acute Hypoxemic Respiratory Failure 2/2 COPD exacerbation, improving Reactive leukocytosis likely secondary to steroids She is saturating well on room air She does not use oxygen at home CXR (09/17/25) showed no acute cardiopulmonary abnormality CXR (09/19/25) shows no cardiopulmonary abnormality WBC has up trended to 24.5 Procalcitonin is normal Plan: Continue IV ceftriaxone 1 gm - day 7 ( Today is last day) Course of IV azithromycin 500 mg is completed Stopped IV steroids in view of leukocytosis and hyperglycemia Started oral prednisone 20 mg for 4 days Continue Duoneb (albuterol / ipratropium) q4h scheduled & q2h PRN Continue Incentive spirometry and flutter Guaifenesin 600 mg b.i.d. Plan to discharge patient on Symbicort scheduled b.i.d. Pulmonary function testing outpatient Suspicion of PE-ruled out Wells score is 1.5 D-dimer is mildly elevated- 0.74 Echo shows LVEF of 65%, RVSP 15 mm Hg, concentric hypertrophy of LV, thickened RV free wall, trace mitral regurgitation and trivial tricuspid regurgitation. CTA could not be done as patient has CKD and creatinine is elevated V/Q scan shows no evidence of pulmonary embolism REAGAN on Stage 5 CKD, most likely multifactorial Prerenal ( Dehydration, Vasomotor nephropathy) and Intrinsic 2/2 Acute tubular necrosis Normocytic normochromic anemia, most likely anemia in CKD Advanced CKD followed by outpatient nephrology, Dr Hebert Davidson Creatinine up trended from 4.01 to 4.65 BUN/Cr is elevated-21.1 Positive fluid balance of 425 mL in last 12 hrs, Continue strict I's and o's Fena - 10.1 %, Urine sodium is 99 BNP may be falsely elevated due to renal disease Renal ultrasound (09/17/25) showed echogenic bilateral kidneys suggestive of chronic medical renal disease and no hydronephrosis phosphorus is normal, monitor potassium PTH is elevated-199 H&H-11.4/34.2 Serum iron is normal % saturation is high TIBC is low-255 Lev catheter is in place and patient received 3 sessions of dialysis Hepatitis B serology pending Immunology is pending TDC placement today and pending dialysis chair Hypertensive urgency-resolved Blood pressure is stable She uses diltiazem 180 mg and carvedilol 25 mg BID at home, as per patient she does not have a history of AFib and uses diltiazem and carvedilol for hypertension Continued home antihypertensives Increased amlodipine to 10 mg IV hydralazine prn if systolic BP > 180 mm Hg Questionable history of AFib Steven Vasc score 3 Tele shows sinus rhythm Patient takes diltiazem 180 mg at home As per patient, she does not have a history of AFib and uses diltiazem for hypertension Her pulse rate has stabilized, currently in the 80s Continued home medication diltiazem 180 mg Patient is not on blood thinners Type 2 diabetes mellitus HbA1C is 8% Poor glycemic control Currently not on any antidiabetic medications Decreased Lantus from 28 to 26 units Decreased lispro from 14 to 13 units scheduled along with high-dose hyperglycemia/hypoglycemia protocol Monitor glucose Pseudohyponatremia Sodium is 134 Hyperglycemia induced hyponatremia Gout Patient uses Allopurinol at home She uses allopurinol 300 mg daily at home which is not renally dosed Continue allopurinol 100 mg dosage, which is renally dosed If GFR <10 ,consider 50 mg daily or 100 mg every other day Uric acid is elevated-7.4 Outpatient follow up Hyperlipidemia LDL is 147 She uses atorvastatin 20 mg at home Increased atorvastatin to 40 mg Outpatient follow up Substance use disorder Urine drug screen is positive for cannabinoids supervisor gate services and substance use navigator consulted DVT Prophylaxis: Heparin SQ Nutrition: 60 g Carb controlled diet PT: Ordered Prognosis: Guarded Disposition: Continue DuoNebs, monitor creatinine, Lev catheter is in place and she received 3 sessions of dialysis, TDC placement today, follow Dr. Buchanan recommendations, dialysis chair pending Resident MD attestation: The patient note has been reviewed and supervised by senior residents PGY-2/ PGY-3. Patient was seen, examined and discussed with attending physician, Dr. Torrie Mercedes MD Internal Medicine resident, PGY-1 Date of Service: Sep 23, 2025 Billing Provider: BAMBI SALAZAR MD, PREETHI, RES Sep 23, 2025 15:15
[2025-09-23] MEDS: heparin 1,000 units/ml 10ml inj IV ONE (16:27)
[2025-09-23] MEDS: heparin 1,000 units/ml 10ml inj HE ONE ×2 (16:28→16:29)
[2025-09-23] MEDS: heparin 1,000unit/ml 10ml vial 10 ML IV ONE (16:28)
--- NOTE | 2025-09-23 16:30 | PROGRESS NOTE ---
Progress Note - Angio Providers to CC ~ Angio Progress Note: RIJ TDC placed. May use now. Routine care. Temp removed. EBL less than 5cc. Complications none. Dictated. RAYMON SOMMER MD Sep 23, 2025 16:30
--- NOTE | 2025-09-23 18:43 | RADIOLOGY REPORT ---
Right IJ Tunneled Dialysis Catheter Placement HISTORY: needs tunneled dialysis cath REFERRING PHYSICIAN: RILEY STEVE MD MEDICATIONS: 9 cc of 1% Lidocaine. The patient did not require conscious sedation. FLUOROSCOPY TIME: 0.5 minutes, 3.34 mGy. ESTIMATED BLOOD LOSS: Less than 5 ml PROCEDURE: 1. Tunneled right internal jugular vein dialysis catheter placement TECHNIQUE: The right neck and chest were prepped and draped in a sterile fashion. Local anesthesia was applied. The internal jugular vein was punctured under ultrasound guidance. A 5 [place] dilator was placed. A tunnel was created in the soft tissues of the right anterior chest wall. A dialysis catheter was pulled through the tunnel. The catheter is a 23 centimeter bio flow Duramax. A peel-away sheath was placed in the IJ. The catheter was placed in the peel-away and the peel-away was removed. Entrance site was covered with glue. Both lumens were flushed with heparin. Catheter was secured at the exit site. FINDINGS: Catheter tip is in the right atrium. IMPRESSION: Tunneled dialysis catheter placement. May use now, routine catheter care.
[2025-09-23] MEDS: insulin glargine (Lantus) pen - multi-dose SQ SCH (21:57)
[2025-09-23] MEDS: NPH, human insulin isophane inj. SQ ONE (22:10)
[2025-09-24] VITALS (17 sets, daily range): BP systolic 134–153; BP diastolic 81–101; PULSE 20–99; RESP 12–20; TEMP 94.7–98.6; O2SAT 95–98
[2025-09-24 06:12] LABS: MEAN PLATELET VOLUME 9.5 FL (7.4-10.4); RED CELL DISTRIBUTION WIDTH 14.6 % (11.5-14.5)
[2025-09-24 06:29] LABS: CREATININE 3.78 MG/DL (0.40-0.90); TOTAL CARBON DIOXIDE 23.9 MMOL/L (24-32); eCRCL 13 ML/MIN; eGFR 12 ML/MIN
[2025-09-24] MEDS: INSULIN LISPRO 100 UNIT/ML INSULN.PEN MULTI-DOSE SQ SCH (09:00)
--- NOTE | 2025-09-24 09:12 | PROGRESS NOTE ---
Progress Note Dictate Providers to CC ~ Central Line/PICC still needed: Yes Central Line/PICC Necessity: Req HD/Plasmapheresis Mu[facility]oz Indications Met/Not Met: F/C Indications Not Met Antibiotic Ordered?: N/A Subjective Subjective the patient got dialyzed yesterday. TDC in place. wbc count is getting better. Objective Vitals Vital Signs Date Time Temp Pulse Resp B/P (MAP) Pulse Ox O2 Delivery O2 Flow Rate FiO2 09/24/25 07:48 80 09/24/25 07:26 18 Room Air 0.0 09/24/25 07:25 145/90 (108) 09/24/25 07:19 96 21 09/24/25 06:00 94.7 Lab Results: 09/24/25 0521 09/24/25 0521 Objective Vital Signs: As above General: Normal body habitus, no acute distress. Skin: No rashes, lumps, ulcers, blisters, purpura or petechiae HEENT: Anicteric sclera, JANE Neck: Supple and nontender without enlargement of the thyroid, or lymphadenopathy. Chest: Normal size and shape, no tenderness, CTA bilaterally Heart: Regular. No jugular venous distention, S1 and S2 heard , no gallop Abdomen: Soft and non tender no organomegaly,BS+ Extremities: No pedal edema Neuro: Nonfocal. Coagulation Studies Laboratory Tests Test 09/17/25 14:55 D-Dimer 0.74 MG/L FEU (0-0.50) H D-Dimer Comment Advance Care Planning Advanced Care plannin - 30 Minutes Problem\Assessment\Plan Problems/Diagnosis: (1) Acute kidney injury superimposed on CKD Assessment & Plan: Acute on Chronic Kidney Disease (Stage 5 CKD) She has been started on HD and has had HD andwaiting for outpatient dialysis placement. (2) Acute and chronic respiratory failure with hypoxia Assessment & Plan: resolved. she is on room air. STOPped steroids. (3) Hypertensive emergency Assessment & Plan: resolved (4) Heart failure Assessment & Plan: Normal LV size with concentric hypertrophy. Overall systolic function is normal. overall LVEF is 65%. She has HFpEF (5) Diabetes mellitus Assessment & Plan: check serology for complettion. She has nephrotic range proteinuria. (6) Gout Assessment & Plan: stable. Sepsis Screening Skin Color: Normal RILEY STEVE MD Sep 24, 2025 09:12
[2025-09-24] MEDS: insulin glargine (Lantus) pen - multi-dose SQ SCH (10:58)
[2025-09-24 11:16] LABS: ANTINUCLEAR ANTIBODIES Negative (Negative)
[2025-09-24 13:13] LABS: ANTISTREPTOLYSIN O AB 164.4 IU/mL (0.0-200.0); COMPLEMENT C3, SERUM 110 mg/dL (82-167); COMPLEMENT C4, SERUM 26 mg/dL (12-38)
--- NOTE | 2025-09-24 17:54 | PROGRESS NOTE- Residence ---
Progress Note - Resident Providers to CC Resident Creating Document: LUIZ MERCEDES RES ~ Antibiotic Timeout Antibiotic Ordered?: No Subjective Patient was seen and examined bedside. She is resting comfortably in the bed. She does not complain of any shortness of breath or cough. Mild wheezing present. She is saturating well on room air. She denies fever, chills, swelling of legs or any other complaints. She got 4 sessions of dialysis. She has a TDC in place and pending dialysis chair at [facility]. Objective Vital Signs Date Time Temp Pulse Resp B/P (MAP) Pulse Ox O2 Delivery O2 Flow Rate FiO2 09/24/25 15:09 79 20 Room Air 0.0 09/24/25 15:07 98 21 09/24/25 10:00 97.6 153/81 (105) Result Diagram: 09/24/25 0521 09/24/25 0521 Awake, alert, and oriented x4, resting comfortably in bed, in no acute distress HEENT: Atraumatic, normocephalic, EOMI, anicteric sclera ; pink conjunctiva, moist mucous membranes Neck: Trachea midline. Supple, full range of motion, no JVD Cardiac: Regular rhythm, regular rate with no murmurs all over the precordium. Respiratory: Equal breath sounds bilaterally with mild wheezing, no tachypnea, rub or rales, Chest wall is symmetric and without deformity. Gastrointestinal: Abdomen symmetric, non-distended, soft, non-tender, normal bowel sounds x4 quadrant, normoactive, no hepatosplenomegaly Musculoskeletal: No pedal edema, no cyanosis Neurological: Speech is clear, alert, and oriented x 4. No motor or sensory deficit, deep tendon reflexes normal, cerebellar intact. Cranial nerves II-XII intact. Skin: Warm and dry Coagulation Studies Laboratory Tests Test 09/17/25 14:55 D-Dimer 0.74 MG/L FEU (0-0.50) H D-Dimer Comment Assessment Assessment 54 year old female with history of hypertension, hyperlipidemia, gout, stage 4 CKD, asthma admitted for management of COPD exacerbation and REAGAN on CKD stage 4. Plan Plan Acute Hypoxemic Respiratory Failure 2/2 COPD exacerbation, improving Reactive leukocytosis likely secondary to steroids She is saturating well on room air She does not use oxygen at home CXR (09/17/25) showed no acute cardiopulmonary abnormality CXR (09/19/25) shows no cardiopulmonary abnormality WBC has downtrended to 18.7 Plan: She completed a course of IV ceftriaxone and azithromycin Stopped IV steroids in view of leukocytosis and hyperglycemia Continue oral prednisone 20 mg for 4 days, monitor glucose Continue Duoneb (albuterol / ipratropium) q4h scheduled & q2h PRN Continue Incentive spirometry and flutter Guaifenesin 600 mg b.i.d. Plan to discharge patient on Symbicort scheduled b.i.d. Pulmonary function testing outpatient Suspicion of PE-ruled out Wells score is 1.5 D-dimer is mildly elevated- 0.74 Echo shows LVEF of 65%, RVSP 15 mm Hg, concentric hypertrophy of LV, thickened RV free wall, trace mitral regurgitation and trivial tricuspid regurgitation. CTA could not be done as patient has CKD and creatinine is elevated V/Q scan shows no evidence of pulmonary embolism REAGAN on Stage 5 CKD, most likely multifactorial Prerenal ( Dehydration, Vasomotor nephropathy) and Intrinsic 2/2 Acute tubular necrosis Normocytic normochromic anemia, most likely anemia in CKD Advanced CKD followed by outpatient nephrology, Dr Hebert Davidson Creatinine downtrended from 4.65 to 3.78 BUN/Cr is normal Negative fluid balance of 3400 mL in last 12 hrs, Continue strict I's and o's Fena - 10.1 %, Urine sodium is 99 BNP may be falsely elevated due to renal disease Renal ultrasound (09/17/25) showed echogenic bilateral kidneys suggestive of chronic medical renal disease and no hydronephrosis phosphorus is normal, monitor potassium PTH is elevated-199 H&H-12.3/35.9 Serum iron is normal % saturation is high TIBC is low-[address] Patient received 4 sessions of dialysis Hepatitis B serology negative Immunology is pending Pending dialysis chair at [facility] Hypertensive urgency-resolved Blood pressure is on the higher side today She uses diltiazem 180 mg and carvedilol 25 mg BID at home, as per patient she does not have a history of AFib and uses diltiazem and carvedilol for hypertension Continued home antihypertensives Continue amlodipine 10 mg IV hydralazine prn if systolic BP > 180 mm Hg Questionable history of AFib Steven Vasc score 3 Tele shows sinus rhythm Patient takes diltiazem 180 mg at home As per patient, she does not have a history of AFib and uses diltiazem for hypertension Her pulse rate has stabilized, currently in the 80s Continued home medication diltiazem 180 mg Patient is not on blood thinners Type 2 diabetes mellitus HbA1C is 8% Poor glycemic control Currently not on any antidiabetic medications Lantus 15 units b.i.d. Increased lispro to 14 units scheduled along with high-dose hyperglycemia/hypoglycemia protocol Monitor glucose Pseudohyponatremia, resolved Sodium is 135 Hyperglycemia induced hyponatremia Gout Patient uses Allopurinol at home She uses allopurinol 300 mg daily at home which is not renally dosed Continue allopurinol 100 mg dosage, which is renally dosed If GFR <10 ,consider 50 mg daily or 100 mg every other day Uric acid is elevated-7.4 Outpatient follow up Hyperlipidemia LDL is 147 She uses atorvastatin 20 mg at home Increased atorvastatin to 40 mg Outpatient follow up Substance use disorder Urine drug screen is positive for cannabinoids convention services director and substance use navigator consulted DVT Prophylaxis: Heparin SQ Nutrition: 60 g Carb controlled diet PT: Ordered Prognosis: Guarded Disposition: Continue DuoNebs, monitor creatinine, monitor glucose, she received 4 sessions of dialysis, TDC in place, follow Dr. Buchanan recommendations, dialysis chair pending at [facility]. Resident attestation: The patient note has been reviewed and supervised by senior residents PGY-2/ PGY-3. Patient was seen, examined and discussed with attending physician, Dr. Torrie Mercedes MD Internal Medicine resident, PGY-1 Date of Service: Sep 24, 2025 Billing Provider: BAMBI SALAZAR MD, PREETHI, RES Sep 24, 2025 17:54
--- NOTE | 2025-09-24 18:33 | PROGRESS NOTE- Residence ---
Progress Note - Resident Providers to CC Resident Creating Document: RENEE JUSTICE RES ~ Antibiotic Timeout Antibiotic Ordered?: N/A Objective Vital Signs Date Time Temp Pulse Resp B/P (MAP) Pulse Ox O2 Delivery O2 Flow Rate FiO2 09/24/25 15:09 79 20 Room Air 0.0 09/24/25 15:07 98 21 09/24/25 10:00 97.6 153/81 (105) Result Diagram: 09/24/2552009/24/25520 Coagulation Studies Laboratory Tests Test 09/17/25 14:55 D-Dimer 0.74 MG/L FEU (0-0.50) H D-Dimer Comment Assessment Assessment The patient had an MRI head ordered under my name. I did not order the MRI head. The patient did not require MRI head. Date of Service: Sep 24, 2025 Billing Provider: BAMBI SALAZAR MD, SHIVANI, RES Sep 24, 2025 18:33
[2025-09-24] MEDS ORDERED: insulin glargine (Lantus) pen - multi-dose SQ SCH (21:00)
[2025-09-25] VITALS (15 sets, daily range): BP systolic 89–138; BP diastolic 64–88; PULSE 72–88; RESP 14–20; TEMP 97.1–98.2; O2SAT 95–99
[2025-09-25 05:01] LABS: MEAN PLATELET VOLUME 9.1 FL (7.4-10.4); RED CELL DISTRIBUTION WIDTH 14.3 % (11.5-14.5)
[2025-09-25 05:11] LABS: CREATININE 4.58 MG/DL (0.40-0.90); TOTAL CARBON DIOXIDE 24.4 MMOL/L (24-32); eCRCL 11 ML/MIN; eGFR 10 ML/MIN
[2025-09-25] MEDS: insulin glargine (Lantus) pen - multi-dose SQ SCH (08:05)
--- NOTE | 2025-09-25 08:38 | PROGRESS NOTE ---
Progress Note Dictate Providers to CC ~ Central Line/PICC still needed: Yes Central Line/PICC Necessity: Req HD/Plasmapheresis Muñoz Indications Met/Not Met: F/C Indications Not Met Antibiotic Ordered?: N/A Subjective Subjective persistent leukocytosis is concerning. Although she does not have any fevers. I stopped her prednisone today. ? steroid related. due for hD today. 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 Remains cheerful, enjoying the unusual fog in this area over the past weeks. Objective Vitals Vital Signs Date Time Temp Pulse Resp B/P (MAP) Pulse Ox O2 Delivery O2 Flow Rate FiO2 09/25/25 08:09 72 09/25/25 06:00 97.1 14 138/88 (105) 98 Room Air 09/25/25 03:09 0.0 09/25/25 03:04 21 Lab Results: 09/25/25 0451 09/25/25 0451 Objective Vital Signs: As above General: Normal body habitus, no acute distress. Skin: No rashes, lumps, ulcers, blisters, purpura or petechiae HEENT: Anicteric sclera, JANE Neck: Supple and nontender without enlargement of the thyroid, or lymphadenopathy. Chest: Normal size and shape, no tenderness, CTA bilaterally Heart: Regular. No jugular venous distention, S1 and S2 heard , no gallop Abdomen: Soft and non tender no organomegaly,BS+ Extremities: No pedal edema Neuro: Nonfocal. Coagulation Studies Laboratory Tests Test 09/17/25 14:55 D-Dimer 0.74 MG/L FEU (0-0.50) H D-Dimer Comment Advance Care Planning Advanced Care plannin - 30 Minutes Problem\Assessment\Plan Problems/Diagnosis: (1) Acute kidney injury superimposed on CKD Assessment & Plan: Acute on Chronic Kidney Disease (Stage 5 CKD) She has been started on HD and has had HD and waiting for outpatient dialysis placement. HD today as usual. keep a watch on the wbc count (2) Acute and chronic respiratory failure with hypoxia Assessment & Plan: resolved. she is on room air. STOPped steroids. (3) Hypertensive emergency Assessment & Plan: resolved (4) Heart failure Assessment & Plan: Normal LV size with concentric hypertrophy. Overall systolic function is normal. overall LVEF is 65%. She has HFpEF (5) Diabetes mellitus Assessment & Plan: check serology for complettion. She has nephrotic range proteinuria. (6) Gout Assessment & Plan: stable. Sepsis Screening Skin Color: Normal RILEY STEVE MD Sep 25, 2025 08:38
[2025-09-25] MEDS: INSULIN LISPRO 100 UNIT/ML INSULN.PEN MULTI-DOSE SQ SCH (09:27)
[2025-09-25] MEDS: EPOETIN ALFA-EPBX 20,000 UNIT/ML 1 ML MDV IV ONE (10:06)
--- NOTE | 2025-09-25 10:36 | PROGRESS NOTE- Residence ---
Progress Note - Resident Providers to CC Resident Creating Document: LUIZ MERCEDES RES ~ Antibiotic Timeout Antibiotic Ordered?: No Subjective Patient was seen and examined bedside. She is sitting comfortably in the chair without shortness of breath. She is saturating well on room air. She has no swelling of legs. She will be getting 5th session of dialysis today. TDC is in place. Dialysis chair is pending. Objective Vital Signs Date Time Temp Pulse Resp B/P (MAP) Pulse Ox O2 Delivery O2 Flow Rate FiO2 09/25/25 10:15 87 18 95/65 (75) 97 Room Air 09/25/25 09:45 98.2 09/25/25 08:46 0.0 21 Result Diagram: 09/25/25 0451 09/25/25 0451 Awake, alert, and oriented x4, resting comfortably in bed, in no acute distress HEENT: Atraumatic, normocephalic, EOMI, anicteric sclera ; pink conjunctiva, moist mucous membranes Neck: Trachea midline. Supple, full range of motion, no JVD Cardiac: Regular rhythm, regular rate with no murmurs all over the precordium. Respiratory: Equal breath sounds bilaterally with mild wheezing, no tachypnea, rub or rales, Chest wall is symmetric and without deformity. Gastrointestinal: Abdomen symmetric, non-distended, soft, non-tender, normal bowel sounds x4 quadrant, normoactive, no hepatosplenomegaly Musculoskeletal: No pedal edema, no cyanosis Neurological: Speech is clear, alert, and oriented x 4. No motor or sensory deficit, deep tendon reflexes normal, cerebellar intact. Cranial nerves II-XII intact. Skin: Warm and dry Coagulation Studies Laboratory Tests Test 09/17/25 14:55 D-Dimer 0.74 MG/L FEU (0-0.50) H D-Dimer Comment Assessment Assessment 54 year old female with history of hypertension, hyperlipidemia, gout, stage 4 CKD, asthma admitted for management of COPD exacerbation and REAGAN on CKD stage 4. Plan Plan Acute Hypoxemic Respiratory Failure 2/2 COPD exacerbation, improving Reactive leukocytosis likely secondary to steroids She is saturating well on room air She does not use oxygen at home CXR (09/17/25) showed no acute cardiopulmonary abnormality CXR (09/19/25) shows no cardiopulmonary abnormality WBC is 18.8 Plan: She completed a course of IV ceftriaxone and azithromycin Stopped IV steroids in view of leukocytosis and hyperglycemia Continue oral prednisone 20 mg for 4 days, monitor glucose Continue Duoneb (albuterol / ipratropium) q4h scheduled & q2h PRN Continue Incentive spirometry and flutter Guaifenesin 600 mg b.i.d. Plan to discharge patient on Symbicort scheduled b.i.d. Pulmonary function testing outpatient Suspicion of PE-ruled out Wells score is 1.5 D-dimer is mildly elevated- 0.74 Echo shows LVEF of 65%, RVSP 15 mm Hg, concentric hypertrophy of LV, thickened RV free wall, trace mitral regurgitation and trivial tricuspid regurgitation. CTA could not be done as patient has CKD and creatinine is elevated V/Q scan shows no evidence of pulmonary embolism REAGAN on Stage 5 CKD, most likely multifactorial Prerenal ( Dehydration, Vasomotor nephropathy) and Intrinsic 2/2 Acute tubular necrosis Normocytic normochromic anemia, most likely anemia in CKD Advanced CKD followed by outpatient nephrology, Dr Hebert Davidson Creatinine downtrended from 4.65 to 3.78 BUN/Cr is normal Negative fluid balance of 3400 mL in last 12 hrs, Continue strict I's and o's Fena - 10.1 %, Urine sodium is 99 BNP may be falsely elevated due to renal disease Renal ultrasound (09/17/25) showed echogenic bilateral kidneys suggestive of chronic medical renal disease and no hydronephrosis phosphorus is normal, monitor potassium PTH is elevated-199 H&H-12.3/35.9 Serum iron is normal % saturation is high TIBC is low-[address] Patient received 4 sessions of dialysis Hepatitis B serology negative Immunology is pending Pending dialysis chair at [facility] Hypertensive urgency-resolved Blood pressure is on the higher side today She uses diltiazem 180 mg and carvedilol 25 mg BID at home, as per patient she does not have a history of AFib and uses diltiazem and carvedilol for hypertension Continued home antihypertensives Continue amlodipine 10 mg IV hydralazine prn if systolic BP > 180 mm Hg Questionable history of AFib Steven Vasc score 3 Tele shows sinus rhythm Patient takes diltiazem 180 mg at home As per patient, she does not have a history of AFib and uses diltiazem for hypertension Her pulse rate has stabilized, currently in the 80s Continued home medication diltiazem 180 mg Patient is not on blood thinners Type 2 diabetes mellitus HbA1C is 8% Poor glycemic control Currently not on any antidiabetic medications Lantus 15 units b.i.d. Increased lispro to 14 units scheduled along with high-dose hyperglycemia/hypoglycemia protocol Monitor glucose Pseudohyponatremia, resolved Sodium is 135 Hyperglycemia induced hyponatremia Gout Patient uses Allopurinol at home She uses allopurinol 300 mg daily at home which is not renally dosed Continue allopurinol 100 mg dosage, which is renally dosed If GFR <10 ,consider 50 mg daily or 100 mg every other day Uric acid is elevated-7.4 Outpatient follow up Hyperlipidemia LDL is 147 She uses atorvastatin 20 mg at home Increased atorvastatin to 40 mg Outpatient follow up Substance use disorder Urine drug screen is positive for cannabinoids donor services manager and substance use navigator consulted DVT Prophylaxis: Heparin SQ Nutrition: 60 g Carb controlled diet PT: Ordered Prognosis: Guarded Disposition: Continue DuoNebs, monitor creatinine, monitor glucose, she received 4 sessions of dialysis, TDC in place, follow Dr. Buchanan recommendations, dialysis chair pending at [facility]. Resident attestation: The patient note has been reviewed and supervised by senior residents PGY-2/ PGY-3. Patient was seen, examined and discussed with attending physician, Dr. Torrie Mercedes MD Internal Medicine resident, PGY-1 Date of Service: Sep 25, 2025 Billing Provider: BAMBI SALAZAR MD, PREETHI, RES Sep 25, 2025 10:36
[2025-09-25] MEDS: albumin (human) 25% 100ml IV 100 ML IV PRN (10:53)
[2025-09-25] MEDS: heparin 1,000unit/ml 10ml vial 10 ML IV ONE (11:36)
[2025-09-25] MEDS: heparin 1,000 units/ml 10ml inj IV ONE (11:37)
[2025-09-25] MEDS: heparin 1,000 units/ml 10ml inj HE ONE ×2 (11:38→11:39)
[2025-09-25] MEDS ORDERED: ATOR40TA PO (12:52)
[2025-09-25] MEDS ORDERED: PRED10TA23 PO (12:52)
[2025-09-25] MEDS ORDERED: ALLO100T15 PO (12:52)
[2025-09-25] MEDS ORDERED: AMLO5TAB16 PO (12:52)
[2025-09-25] MEDS ORDERED: EMPA10TA PO (12:52)
[2025-09-25] MEDS ORDERED: BUDE10.2 INH (12:52)
[2025-09-25] MEDS ORDERED: LINA5TAB4 PO (12:54)
--- NOTE | 2025-09-25 18:55 | DISCHARGE SUMMARY-Residence ---
Discharge Summary Providers to CC Resident Creating Document: LUIZ MERCEDESMACKENZIE ~ Discharge Summary Admission Diagnosis: Asthma Exacerbation Hospital Course DATE OF ADMISSION: 09/17/25 DATE OF DISCHARGE: 09/25/25 Discharge Diagnosis\Comment: Acute Hypoxemic Respiratory Failure 2/2 COPD exacerbation, resolved Reactive leukocytosis likely secondary to steroids REAGAN on Stage 5 CKD, most likely multifactorial due to Prerenal ( Dehydration, Vasomotor nephropathy) and Intrinsic 2/2 Acute tubular necrosis Normocytic normochromic anemia,likely due to anemia of CKD Hypertensive urgency-resolved Questionable history of AFib Steven Vasc score 3 Type 2 diabetes mellitus Pseudohyponatremia, resolved Gout Substance use disorder Operations\Procedures: five cycles of Dialysis Consultants: Dr. Chin vaughan, the middleware architect Dr. negar Buchanan, the middleware architect Dr. Barron Pearson, the Intervention radiologist Complications: None Condition on DC: Stable Discharge Summary: HPI as per admitting physician: A 54-year-old woman with a history of asthma presented to ED as she woke up on the morning of day of admission with acute onset chest tightness and progressive dyspnea. Symptoms began on awakening and worsened with exertion, she used her albuterol repeatedly throughout the day without any relief. She did not have to use her albuterol for the past few months. Patient's symptoms were associated with productive cough with white sputum, she denied fever, chills, rhinorrhea, sick contacts, travel history etc.. In the ED, she required 2 L oxygen nasal cannula to maintain saturation. She does not use oxygen at home. She received 1 dose of IV methylprednisolone 125 mg in the ED and DuoNebs were started. Course in the hospital: She was started on ceftriaxone and azithromycin. Chest x-ray showed no acute cardiopulmonary abnormality, inflammatory markers were normal SIRS criteria was not met. She was continued on IV methylprednisolone 62.5 mg q.8h. She was started on incentive spirometry , Wells score was 1.5 and D-dimer was elevated hence ventilation perfusion scan was done which showed no PE. Creatinine was elevated due to ESRD, nephrology was consulted and recommended dialysis. Renal ultrasound showed echogenic bilateral kidneys suggestive of chronic medical renal disease and no hydronephrosis. Her blood pressure was high and we continued home medications diltiazem 180 mg and carvedilol 25 mg b.i.d., she was started on amlodipine 5 mg. A1c is 8% and she has poor glycemic control. Steroids worsen her hyperglycemia and her glucose was controlled with Lantus 26 units, lispro 14 units with meals which was adjusted according to glucose and was on high-dose hyperglycemic hypoglycemic protocol. She was on 60 g carb controlled diet. She received Lev catheter and received 3 sessions of dialysis on it. TDC was placed, she received 2 sessions of dialysis after TDC placement. Hepatitis-B serology was negative. She was discharged home with the dialysis chair. We continued home medication atorvastatin 20 mg for hyperlipidemia. She was taking allopurinol 300 mg for gout which is not renally dosed, considering her ESRD we reduced her dosage to 100 mg. Her wheeze gradually improved over the next few days and she was slowly weaned off of oxygen. She was saturating well on room air on the day of discharge, IV steroids were held in view of hyperglycemia and improving wheeze, she was started on p.o. prednisone 20 mg p.o. for 4 days. Her urine drug screen was positive for cannabinoids and social media strategist and substance use navigator were consulted. Patient did not experience further complications throughout the entire hospital stay. Patient was seen and examined on the day of discharge. All labs, diagnostic workups, discharge plan discussed with the patient in detail during visit before discharge. All questions and concerns answered to the best of my professional knowledge. Imaging: Chest xray:09/17/25: No acute cardiopulmonary disease. Chest xray:09/19/25: No acute disease. Chest xray:09/19/25: 1. New right IJ central line with its tip in the right atrium, without evidence of pneumothorax. 2. Postoperative changes of ACDF and left shoulder surgery. Chest xray:09/21/25: LUNGS: No pleural effusion, consolidation, or pneumothorax. MEDIASTINUM: Normal cardiac size BONES: No acute osseous abnormality. Anterior cervical discectomy and fusion OTHER: Right internal jugular central venous catheter Renal US: 09/17/25 : Echogenic bilateral kidneys suggestive of chronic medical renal disease. No hydronephrosis. Echocardiogram: 09/17/25: overall LVEF is 65%. Normal LV size with concentric hypertrophy. Overall systolic function is normal. RV is normal size and function. Thickened RV free wall. Trileaflet AV appears minimal sclerotic without stenosis or insufficiency. Mild MV annular calcification without stenosis. Trace regurgitation. TV appears structurally normal with trivial regurgitation. Ascending aorta is normal in size. Normal pericardium. No effusion. Lung Scan NM: 09/18/25: Normal exam. No evidence of pulmonary embolism. Discharge instructions: Follow up with PCP in 1-2 weeks Continue oral prednisone 20 mg for 2 days Continue Symbicort 2 puffs daily morning and evening Continue albuterol p.r.n. Follow up with middleware architect, Dr. Buchanan Continue amlodipine 10 mg, monitor blood pressure Continue linagliptin 5 mg for diabetes mellitus, monitor blood glucose and discuss with PCP outpatient. Physical exam at Discharge: Awake, alert, and oriented x4, resting comfortably in bed, in no acute distress HEENT: Atraumatic, normocephalic, EOMI, anicteric sclera ; pink conjunctiva, moist mucous membranes Neck: Trachea midline. Supple, full range of motion, no JVD Cardiac: Regular rhythm, regular rate with no murmurs all over the precordium. Respiratory: Equal breath sounds bilaterally with mild wheezing, no tachypnea, rub or rales, Chest wall is symmetric and without deformity. Gastrointestinal: Abdomen symmetric, non-distended, soft, non-tender, normal bowel sounds x4 quadrant, normoactive, no hepatosplenomegaly Musculoskeletal: No pedal edema, no cyanosis Neurological: Speech is clear, alert, and oriented x 4. No motor or sensory deficit, deep tendon reflexes normal, cerebellar intact. Cranial nerves II-XII intact. Skin: Warm and dry Vital Signs Date Time Temp Pulse Resp B/P (MAP) Pulse Ox O2 Delivery O2 Flow Rate FiO2 09/25/25 12:45 98.0 81 16 107/74 (85) 96 Room Air 09/25/25 11:57 0.0 21 Laboratory Tests Test 09/24/25 05:21 09/24/25 07:06 09/24/25 11:59 09/24/25 17:26 White Blood Count 18.7 X10'3 Red Blood Count 4.09 X10'6 Hemoglobin 12.3 g/dl Hematocrit 35.9 % Mean Corpuscular Volume 87.7 FL Mean Corpuscular Hemoglobin 30.0 PG Mean Corpuscular Hemoglobin Concent 34.2 g/dL Red Cell Distribution Width 14.6 % Platelet Count 271 X10'3 Mean Platelet Volume 9.5 FL Neutrophils (%) (Auto) 77.2 % Lymphocytes (%) (Auto) 14.9 % Monocytes (%) (Auto) 7.7 % Eosinophils (%) (Auto) 0.1 % Basophils (%) (Auto) 0.1 % Neutrophils # (Auto) 14.5 X10'3 Lymphocytes # (Auto) 2.8 X10'3 Monocytes # (Auto) 1.4 X10'3 Eosinophils # (Auto) 0.0 X10'3 Basophils # (Auto) 0.0 X10'3 CBC Comment Sodium Level 135 MMOL/L Potassium Level 4.0 MMOL/L Chloride Level 99 MMOL/L Carbon Dioxide Level 23.9 MMOL/L Anion Gap 12 Blood Urea Nitrogen 67 MG/DL Creatinine 3.78 MG/DL Estimated GFR/1.73 m2 12 ML/MIN BUN/Creatinine Ratio 17.7 Glucose Level 198 MG/DL Calcium Level 8.5 MG/DL Albumin 2.8 G/DL Chemistry Comments Glucometer 195 mg/dl 215 mg/dl 376 mg/dl Test 09/24/25 20:23 09/25/25 04:51 09/25/25 07:08 09/25/25 12:25 Glucometer 343 mg/dl 151 mg/dl 145 mg/dl White Blood Count 18.8 X10'3 Red Blood Count 3.80 X10'6 Hemoglobin 10.8 g/dl Hematocrit 33.1 % Mean Corpuscular Volume 87.2 FL Mean Corpuscular Hemoglobin 28.4 PG Mean Corpuscular Hemoglobin Concent 32.6 g/dL Red Cell Distribution Width 14.3 % Platelet Count 272 X10'3 Mean Platelet Volume 9.1 FL Neutrophils (%) (Auto) 71.5 % Lymphocytes (%) (Auto) 19.7 % Monocytes (%) (Auto) 7.8 % Eosinophils (%) (Auto) 0.6 % Basophils (%) (Auto) 0.4 % Neutrophils # (Auto) 13.4 X10'3 Lymphocytes # (Auto) 3.7 X10'3 Monocytes # (Auto) 1.5 X10'3 Eosinophils # (Auto) 0.1 X10'3 Basophils # (Auto) 0.1 X10'3 CBC Comment Sodium Level 135 MMOL/L Potassium Level 3.7 MMOL/L Chloride Level 99 MMOL/L Carbon Dioxide Level 24.4 MMOL/L Anion Gap 12 Blood Urea Nitrogen 80 MG/DL Creatinine 4.58 MG/DL Estimated GFR/1.73 m2 10 ML/MIN BUN/Creatinine Ratio 17.5 Glucose Level 176 MG/DL Calcium Level 7.9 MG/DL Albumin 2.6 G/DL Chemistry Comments Test 09/25/25 13:39 Glucometer 230 mg/dl *Problems/Diagnosis: (1) Acute kidney injury superimposed on CKD (2) Acute and chronic respiratory failure with hypoxia (3) Hypertensive emergency (4) Heart failure (5) Diabetes mellitus (6) Gout Total Time Spent on D/C: > 30 Minutes Date of Service: Sep 25, 2025 Billing Provider: BAMBI SALAZAR MD, PREETHI, RES Sep 25, 2025 18:55
[2025-09-26 07:18] LABS: A/G RATIO 0.9 (0.7-1.7); BETA GLOBULIN 0.8 g/dL (0.7-1.3); GLOBULIN, TOTAL 3.0 g/dL (2.2-3.9); M-SPIKE Not Observed g/dL (Not Observed)
[2025-09-26 15:11] LABS: ATYPICAL PANCA <1:20 titer (Neg:<1:20); CYTOPLASMIC (C-ANCA) <1:20 titer (Neg:<1:20); PERINUCLEAR (P-ANCA) <1:20 titer (Neg:<1:20)
== END 2025-09-25 16:30 | disposition home or self-care (01) | DRG 469 ==
LOC: ER 00:30 → ED HOLD 03:16 → EDBEDREQ 08:02 → ORTHO 4S 09:05
PROVIDERS: ADMIT Internal Medicine Pulmonary Disease; ATTEND Family Medicine
PROC: CB1YYZZ Planar Nuclear Medicine Imaging of Respiratory System using Other Radionuclide (ICD-10-PCS; 2025-09-18)
PROC: 02H633Z Insertion of Infusion Device into Right Atrium, Percutaneous Approach (ICD-10-PCS; principal; 2025-09-19)
PROC: 5A1D70Z Performance of Urinary Filtration, Intermittent, Less than 6 Hours Per Day (ICD-10-PCS; 2025-09-19)
PROC: B548ZZA Ultrasonography of Superior Vena Cava, Guidance (ICD-10-PCS; 2025-09-19)
PROC: 5A1D70Z Performance of Urinary Filtration, Intermittent, Less than 6 Hours Per Day (ICD-10-PCS; 2025-09-20)
PROC: 5A1D70Z Performance of Urinary Filtration, Intermittent, Less than 6 Hours Per Day (ICD-10-PCS; 2025-09-21)
PROC: 5A1D70Z Performance of Urinary Filtration, Intermittent, Less than 6 Hours Per Day (ICD-10-PCS; 2025-09-23)
PROC: 0JH63XZ Insertion of Tunneled Vascular Access Device into Chest Subcutaneous Tissue and Fascia, Percutaneous Approach (ICD-10-PCS; 2025-09-23)
PROC: 02H633Z Insertion of Infusion Device into Right Atrium, Percutaneous Approach (ICD-10-PCS; 2025-09-23)
PROC: B548ZZA Ultrasonography of Superior Vena Cava, Guidance (ICD-10-PCS; 2025-09-23)
PROC: 5A1D70Z Performance of Urinary Filtration, Intermittent, Less than 6 Hours Per Day (ICD-10-PCS; 2025-09-25)
DX: N17.0 Acute kidney failure with tubular necrosis (principal); J96.21 Acute and chronic respiratory failure with hypoxia; I13.2 Hypertensive heart and chronic kidney disease with heart failure and with stage 5 chronic kidney disease, or end stage renal disease; I16.1 Hypertensive emergency; J45.901 Unspecified asthma with (acute) exacerbation; E11.22 Type 2 diabetes mellitus with diabetic chronic kidney disease; D72.829 Elevated white blood cell count, unspecified; N18.5 Chronic kidney disease, stage 5; Z20.822 Contact with and (suspected) exposure to COVID-19; E78.5 Hyperlipidemia, unspecified; I50.30 Unspecified diastolic (congestive) heart failure; T38.0X5A Adverse effect of glucocorticoids and synthetic analogues, initial encounter; Z79.899 Other long term (current) drug therapy; Z88.5 Allergy status to narcotic agent; Y92.89 Other specified places as the place of occurrence of the external cause
CPT/HCPCS: 36415; 36558; 71045; 76770; 77001; 78582; 80048; 80053; 80061; 80305; 81001; 82570; 82948; 83036; 83540; 83550; 83605; 83615; 83735; 83880; 83930; 83935; 83970; 84100; 84132; 84133; 84145; 84155; 84165; 84300; 84484; 84550; 85007; 85025; 85379; 86038; 86060; 86160; 86256; 86704; 86706; 87040; 87081; 87207; 87340; 87804; 87811; 92508; 92616; 93005; 93306; 94640; 94664; 94668; 94760; 97161; 97530; 99285; A4333; A4620; A6258; A9539; A9540; E1594; G0257; G0378; J0360; J0456; J0696; J1644; J1815; J1938; J2151; J2405; J2919; J7030; J7512; J7614; P9047; Q4081